=== PATIENT | female | born 1935 | race Caucasian/White ===

== ENCOUNTER 2020-05-04 09:36 | Inpatient (IN) | payer MEDICARE, MEDICAID, SELFPAY ==
[2020-05-04] VITALS (13 sets, daily range): BP systolic 106–179; BP diastolic 45–108; PULSE 87–141; RESP 1–22; TEMP 35.8–36.6; O2SAT 94–100; BMI 23.9
--- NOTE | ~2020-05-04 | MR_ITS ---
EXAMINATION: MR brain/brain stem wo/w con DATE: 05/06/2020 12:47 INDICATION: Right hemiparesis. TECHNIQUE: Magnetic resonance imaging (MRI) of the brain and brainstem was performed without and with 12 mL MultiHance intravenous contrast. Sequences included sagittal and axial T1-weighted FSE, axial diffusion-weighted FS EPI, axial T2*-weighted GRE, axial T2-weighted FLAIR Propeller, and axial T2-we ighted Propeller. Postcontrast sequences included axial and coronal T1-weighted FSE. Apparent diffusi on coefficient (ADC) maps were created. COMPARISON: Head CT 05/04/2020 FINDINGS: There is an acute infarct involving the left basal ganglia and left internal capsule. There is no intracranial hemorrhage or abnormal mass lesion. There are scattered areas of nonspecific incr eased T2-weighted signal intensity in the cerebral white matter, which is within normal limits for th e patient's age. The ventricles are normal in size. There is an old blowout fracture of floor of left orbit. The mastoid air cells are normal. IMPRESSION: 1. Acute infarct involving the left basal ganglia and left internal capsule. Reviewed, dictated and finalized at location A.
--- NOTE | ~2020-05-04 | XR_ITS ---
EXAMINATION: XR chest 1V portable DATE: 05/06/2020 09:30 INDICATION: Shortness of breath. TECHNIQUE: A single frontal view of the chest was obtained. COMPARISON: Chest single view 05/04/2020 FINDINGS: Calcified right lung nodules are consistent with old granulomatous disease. There is a smal l left pleural effusion. There are airspace opacities in the lower lung zones. No pneumothorax. Cardi omegaly is noted. IMPRESSION: 1. Airspace opacities in the lower lung zones with improvement on the right, consistent with atelecta sis versus pneumonia. 2. Stable small left pleural effusion. 3. Cardiomegaly. Reviewed, dictated and finalized at location A. IMPRESSION: 1. Airspace opacities in the lower lung zones with improvement on the right, co nsistent with atelectasis versus pneumonia. 2. Stable small left pleural effusion. 3. Cardiomegaly.
--- NOTE | ~2020-05-04 | XR_ITS ---
EXAMINATION: XR chest 1V portable INDICATION: Weakness, new infection TECHNIQUE: Portable AP chest at 1020 hours COMPARISON: None available FINDINGS: There are airspace opacities of the lung bases. Some of the right basilar airspace opacitie s have a more nodular appearance. Small pleural effusions are suggested. There is no pneumothorax. Th e cardiomediastinal silhouette is normal for technique. IMPRESSION: 1. Bibasilar airspace opacities which could be infectious or inflammatory. Recommend followup radiogr aphs in 10-14 days after appropriate therapy to evaluate for improvement/resolution. 2. Possible small pleural effusions. Reviewed, dictated and finalized at location A. IMPRESSION: 1. Bibasilar airspace opacities which could be infectious or inflammatory. Aniceto mmend followup radiographs in 10-14 days after appropriate therapy to evaluate for improvement/resolution. 2. Possible small pleural effusions.
--- NOTE | ~2020-05-04 | CT_ITS ---
EXAMINATION: CT brain wo con DATE: 05/04/2020 12:46 INDICATION: Mental status changes. Increasing weakness and right-sided facial droop. TECHNIQUE: Computed tomography (CT) of the head was performed without intravenous contrast. Sagittal and coronal reconstructions were performed. The mA was adjusted according to patient size. Iterative reconstruction technique was employed. The dose-length product was 605.33 mGy-cm. COMPARISON: None FINDINGS: No acute intracranial hemorrhage, acute infarction or abnormal extra axial fluid collection. Small ol d lacunar infarct the head of the right caudate nucleus. There is mild scattered white matter hypoatt enuation consistent with chronic small vessel ischemic disease. Symmetric prominence of the sulci and subarachnoid spaces overlying the convexities consistent with mild to moderate age-appropriate diffu se cerebral volume loss. Ventricles are normal and symmetric. No mass/mass effect. 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 Paranasal sinuses are otherwise unremarkable. The orbits and mastoid air c ells are normal. IMPRESSION: 1. No acute intracranial process. 2. Small old lacunar infarct at the head of the right caudate nucleus. 3. Age-related changes including mild to moderate diffuse volume loss and mild scattered white matter hypoattenuation consistent with chronic small vessel ischemic disease. Reviewed, dictated and finalized at location B. IMPRESSION: 1. No acute intracranial process. 2. Small old lacunar infarct at the head of the right caudate nucleus. 3. Age-related changes including mild to moderate diffuse volume loss and mild scattered white matter hypoattenuation consistent with chronic small vessel isc hemic disease.
--- NOTE | ~2020-05-04 | XR_ITS ---
EXAMINATION: XR barium swallow modified DATE: 05/05/2020 13:27 INDICATION: Dysphagia, Parkinson's TECHNIQUE: Modified barium esophagram was performed by myself to administered fluoroscopy, in conjun ction with speech pathologist who administered barium in varying consistencies as per speech patholog ist documentation. This was recorded on tape. A single fluoroscopic spot image was recorded. The DAP for this procedure was 2.54 Gycm2. Fluoroscopy exposure time was 3.3 minutes. FINDINGS: There is severe cervical spondylosis with a large anterior osteophyte noted at C4-5. Oral stage: Adequate function. Pharyngeal phase: Adequate function. Laryngeal penetration: Present. Aspiration: None. Laryngeal sensitivity: Absent. IMPRESSION: Laryngeal penetration. Please refer to speech pathologist findings and specific feeding r ecommendations. Reviewed, dictated and finalized at location A. IMPRESSION: Laryngeal penetration. Please refer to speech pathologist findings and specific feeding recommendations.
--- NOTE | 2020-05-04 10:04 | ECG_ITS ---
Measurements Intervals [place] Rate: 138 P: AL: 0 QRS: -11 QRSD: 72 T: 87 QT: 327 QTc: 496 Interpretive Statements ATRIAL FIBRILLATION WITH RAPID VENTRICULAR RESPONSE DELAYED PRECORDIAL R/S TRANSITION BORDERLINE ST-T WAVE ABNORMALITY- INF/LAT LEADS BASELINE ARTIFACT- I, II, III, AVR, AVL, AVF, V4-V5 ABNORMAL ECG Electronically Signed On 05-04-2020 11:44:04 CDT by Geovanni Griffin D.O.
[2020-05-04 10:42] LABS: Basophils Percent Auto 0.3 % (0.2-1.2); Hematocrit 46.5 % (37.0-47.0); Hemoglobin 14.9 g/dL (12.0-15.0); Immature Granulocyte Absolute 0.05 K/mm3 (0.00-0.031); Immature Granulocyte Percent A 0.3 % (0-0.5); Lymphocytes Absolute Auto 1.28 K/mm3 (0.9-3.2); Lymphocytes Percent Auto 8.4 % (18.3-44.2); Mean Corpuscular Hemoglobin 29.4 pg (26-34); Mean Corpuscular Volume 91.7 fl (80-100); Mean Platelet Volume 10.7 fl (7.4-10.4); Monocytes Percent Auto 6.8 % (2.6-8.5); Neutrophils Absolute Auto 12.8 K/mm3 (1.3-6.7); Neutrophils Percent Auto 84.2 % (45.5-73.1); Platelet Count Result 196 k/mm3 (150-375); Red Blood Count 5.07 M/mm3 (4.2-5.4); Red Cell Distribution Width 13.2 % (11.5-14.5); White Blood Count 15.2 K/mm3 (4.5-10.0)
[2020-05-04 10:50] LABS: Add Urine Microscopic? YES; Appearance Urine Clear (Clear); Bilirubin Urine Negative (Negative); Blood Urine 2+ (Negative); Color Urine Straw (Yellow); Glucose Urine UA Negative (Negative); Ketones Urine Negative (Negative); Leukocyte Esterase Ur 3+ LEU/UL (Negative); Nitrate Urine Negative (Negative); Protein Urine Negative (Negative); Urobilinogen Urine Negative mg/dL (<2.0); WBC Urine 21-30 /hpf
[2020-05-04 10:52] LABS: Specific Grav Ur 1.004 (1.001-1.035)
[2020-05-04 10:54] LABS: Alanine Aminotransferase 13 U/L (4-35); Albumin Level 3.7 g/dL (3.5-5.1); Alkaline Phosphatase 104 U/L (38-126); Anion Gap 8 mmol/L (8-16); Aspartate Amino Transferase 31 U/L (14-36); Bilirubin,Total 0.9 mg/dL (0.2-1.3); Blood Urea Nitrogen 17 mg/dL (7-17); Calcium 9.4 mg/dL (8.4-10.2); Carbon Dioxide 28 mmol/L (22-30); Chloride 105 mmol/L (98-107); Estimated CRCL calculation 35 ml/min; Estimated Glomerular Filt Rate 60; Glucose 141 mg/dL (65-105); Potassium 3.7 mmol/L (3.4-5.0); Sodium 141 mmol/L (137-145)
--- NOTE | 2020-05-04 11:08 | ED.GENADULT ---
HPI - General Adult General Chief complaint: Neuro Symptoms/Deficit Stated complaint: ?CVA Time Seen by Provider: 05/04/20 10:29 Source: EMS History of Present Illness HPI narrative: Patient is 84 years old white female brought to the emergency room by ambulance from a correction because of increased weakness, right-sided facial drooping, right-sided weakness, altered mental status. Patient was evaluated at [facility] last night for same symptoms and diagnosed with urinary tract infection and sent back to the correction with the same symptoms. retirement called EMS today for further evaluation. Per correction, patient is normally awake and oriented x1 or 2 and able to feed herself soft mechanical diet. Today patient is awake and alert x0. And was unable to feed herself or sit up in a chair. On arrival patient was incontinence of urine and stool. Awake but disoriented x4. Patient unable to follow commands. clinical academic allergist showing atrial fibrillation with RVR. Patient is DNR. Patient was COVID -2 days ago Related Data Home Medications Medication Instructions Recorded Confirmed carbidopa-levodopa tablet PO 05/04/20 lisinopril 05/04/20 omeprazole 05/04/20 rivaroxaban [Xarelto] mg 05/04/20 simvastatin mg 05/04/20 trazodone 05/04/20 Allergies Allergy/AdvReac Type Severity Reaction Status Date / Time aspirin Allergy Unknown Unknown Verified 05/04/20 11:31 caffeine Allergy Unknown Unknown Verified 05/04/20 11:31 codeine Allergy Unknown Unknown Verified 05/04/20 11:31 propoxyphene Allergy Unknown Unknown Verified 05/04/20 11:31 Review of Systems Review of Systems: ROS unobtainable: Yes unobtainable due to medical condition PMFSH Social History Social History Smoking status: Never smoker Alcohol intake: never Exam Narrative: Exam Narrative: General appearance: Well-developed, well-nourished, awake, not in any pain or distress Skin: Normal color Head: Normocephalic, nontraumatic Eyes: Clear conjunctiva ENT: Oropharynx normal, ears normal, nose normal Neck: Supple, nontender Chest and respiratory: Airway patent, no respiratory distress, few scattered rhonchi Heart: Tachycardia, irregular irregularity Abdomen: Soft, nontender, no organomegaly, quiet bowel sounds Vascular: Normal peripheral pulses, normal capillary refill. Musculoskeletal: Patient moving all the extremities, Neurologic: Alert and disoriented x4, possible slight weakness right upper and right lower extremity Course Course Emergency Course: Stable Consultations Consultation #1: DR FU Date: 05/04/20 Time: 13:47 Vital Signs Vital signs: Vital Signs Temperature 36.5 C 05/04/20 09:57 Pulse Rate 141 H 05/04/20 09:57 Respiratory Rate 17 05/04/20 09:57 Blood Pressure 179/94 H 05/04/20 09:57 Pulse Oximetry 97 05/04/20 09:57 Temperature 36.5 C 05/04/20 09:57 Pulse Rate 141 H 05/04/20 09:57 Respiratory Rate 17 05/04/20 09:57 Blood Pressure 179/94 H 05/04/20 09:57 Pulse Oximetry 97 05/04/20 09:57 Medical Decision Making MDM Narrative Medical decision making narrative: Patient presents with confusion. Worse than usual, other. Difficult to get history or to do physical exam, patient is awake, does not follow commands. My plan to get labs, CT head, UA, blood culture. Cardiology Work-up showed that the patient had leukocytosis, urinary tract infection. Chest x-ray showed present bilateral airspace opacification., Patient had negative COVID-19 test 2 days ago. EKG showed A. fib with RVR, Cardizem bolus and drip started, currently patient on Xarelto There is a possibility o
[2020-05-04] MEDS: SODIUM CHLORIDE 0.9% IV 1,000 ML 500 ML IV CONT (11:57)
[2020-05-04] MEDS: dilTIAZem HCl INJ 25 MG/5 ML VIAL 10 MG IV PUSH (11:58)
[2020-05-04 12:40] LABS: Lactic Acid Reflex 1.8 mmol/L (0.7-2.1)
--- NOTE | 2020-05-04 18:16 | PC.NURSE ---
This patient, Marva Otoole, was admitted to IMU Room 201-01. Patient/family oriented to hospital policies and general routines including ID bracelet, bed and alarms, visiting hours, pain management, procedures, bathroom and other care routines, personal items, smoking policy, room service/diet, and visiting hours. Information on how to activate the Rapid Response Team has been discussed. Patient/Family are encouraged to report perceived risks to care and to ask questions if they do not understand what they are told or what they should do.
--- NOTE | 2020-05-04 18:30 | PM.IMHP ---
H&P: HPI History of Present Illness Date/Time: 05/04/20 18:30 Chief complaint: Neurological symptoms. Narrative: Marva Otoole is an 84-year-old female with dementia, DVT and pulmonary embolism on long-term anticoagulation hypertension, dyslipidemia, and parkinsonism who presented to the emergency department earlier today via EMS from [facility] for evaluation of neurological symptoms. Although she is alert she is not able to provide me any history at the time my evaluation due to her altered mental status. I have been told that she is reportedly alert and oriented x1 or 2 at baseline and is able to feed herself a soft mechanical diet. According to EMS report, she has been increasingly confused over the past day and in fact was seen in the emergency department at [facility] in [place] just last evening with similar complaints. She was diagnosed with urinary tract infection and was discharged back to the alf. Today she was unable to sit up, feed herself, and was not oriented and thus she was brought in for further evaluation. EMS notes that she had mild right-sided weakness and facial droop on their arrival as well and she does have slight mouth droop at the time my evaluation as well. When I enter the room she is sitting up watching television. She is very pleasant, is alert, smiles, and nods with everything that I say to her. Of note, chest x-ray did show findings of possible pneumonia and it was related to us that the patient was negative for COVID on testing done 2 days ago. Review of Systems Review of Systems: Narrative: A review of systems is unable to be obtained due to her current mental status as detailed above. [facility] Past Medical History Medical History (Updated 05/04/20 @ 21:35 by Sejal Gallagher PA-C) Atrial fibrillation Breast cancer Chronic GERD Congestive heart failure Coronary artery disease Current use of rat exterminator anticoagulation Dementia Dyslipidemia Fracture of left hip requiring operative repair History of CVA (cerebrovascular accident) History of DVT (deep vein thrombosis) History of pulmonary embolism Hypertension Intellectual disability Major depression Parkinsonism Surgical History Surgical History (Updated 05/04/20 @ 21:33 by Sejal Gallagher PA-C) History of right mastectomy Family History Family History (Updated 05/04/20 @ 21:34 by Sejal Gallagher PA-C) Other Family history unknown Social History Social History (Updated 05/04/20 @ 21:35 by eSjal Gallagher PA-C) Social History: Surrogate decision maker: Diamond Nicole. Code status: Do not resuscitate, comfort focus treatment. Smoking status: Unknown if ever smoked Alcohol intake: unknown Substance use: unknown Additional living arrangements comments: Resident of [facility]. Spiritual care concerns: No Meds Home Medications and Allergies Home Medications Medication Instructions Recorded Confirmed Type anastrozole 1 mg PO DAILY 05/04/20 05/04/20 History carbidopa-levodopa 1 tablet PO DAILY 05/04/20 05/04/20 History carbidopa-levodopa 2 tablet PO HS 05/04/20 05/04/20 History icosapent ethyl [Vascepa] 2 g PO BID 05/04/20 05/04/20 History lisinopril 40 mg PO DAILY 05/04/20 05/04/20 History memantine-donepezil [Namzaric] 1 cap PO DAILY 05/04/20 05/04/20 History omeprazole 20 mg PO DAILY 05/04/20 05/04/20 History rivaroxaban [Xarelto] 20 mg PO HS 05/04/20 05/04/20 History simvastatin 40 mg PO HS 05/04/20 05/04/20 History sulfamethoxazole-trimethoprim 1 tablet PO BID 05/04/20 05/04/20 History [Bactrim DS] trazodone 25 mg PO HS 05/04/20 05/04/20 History Allergies Allergy/AdvReac Type Severity Reaction Status Date / Time aspirin Allergy Unknown Unknown Verified 05/04/20 11:31 caffeine Allergy Unknown Unknown Verified 05/04/20 11:31 codeine Allergy Unknown Unknown Verified 05/04/20 11:31 propoxyphene Allergy Unknown Unknown Verified 05/04/20 11:31
[2020-05-04] MEDS: RIVAROXABAN 20 MG TABLET PO (22:35)
[2020-05-04] MEDS: CARBIDOPA/LEVODOPA 25/100 MG CR TABLET 4 TABLET PO (22:36)
[2020-05-04] MEDS: MEMANTINE HCL XR 28 MG CAP PO (22:36)
[2020-05-04] MEDS: DONEPEZIL HCL 10 MG TABLET PO (22:37)
[2020-05-05] VITALS (16 sets, daily range): BP systolic 110–139; BP diastolic 57–75; PULSE 79–122; RESP 16–20; TEMP 35.8–36.9; O2SAT 95–97
--- NOTE | 2020-05-05 | ECHO_ITS ---
Patient Info Name: Marva Otoole Age: 84 years : 1935 Gender: Female Ht: 63 in Wt: 138 lbs BSA: 1.68 m2 HR: 85 bpm BP: 124 / 67 mmHg Heart Rhythm: Atrial Fibrillation Technical Quality: Good Exam Date: 05/05/2020 11:51 AM Exam Location: [facility] Patient Status: Inpatient Admit Date: 05/04/2020 Staff Ordering Physician: Anna Sung MD Compliance Representative: Jorje Castro RDCS Attending Provider: Anna Sung MD Exam Type: CA echo doppler color flow Study Info Indications I48.1 - Persistent atrial fibrillation Complete two-dimensional, color flow and Doppler transthoracic echocardiogram is performed. History/Risk Factors Afib w/ RVR; HFpEF, HTN, CAD, CVA. Summary 1. Complete two-dimensional, color flow and Doppler transthoracic echocardiogram is performed. 2. Left ventricular chamber dimension is normal. 3. Left ventricular systolic function is normal, estimated at 65-70%. 4. There is mildly increased left ventricular wall thickness. 5. Left atrial chamber dimension is severely enlarged. 6. Right atrial chamber dimension is mildly enlarged. 7. There is mild mitral valve regurgitation. 8. There is mild tricuspid valve regurgitation. 9. There is small pericardial effusion. Left Ventricle Left ventricular chamber dimension is normal. Left ventricular systolic function is normal, estimated at 65-70%. There is mildly increased left ventricular wall thickness. The left ventricular diastolic function is indeterminate. Right Ventricle Right ventricular chamber dimension is normal. Right ventricular systolic function is normal. Left Atria Left atrial chamber dimension is severely enlarged. Right Atria Right atrial chamber dimension is mildly enlarged. Atrial Septum Intact interatrial septum visualized by color flow imaging. Aortic Valve The aortic valve is trileaflet. There is mild aortic valve sclerosis. There is no aortic valve stenosis. There is trace aortic valve regurgitation. Pulmonic Valve The pulmonic valve is normal. There is no pulmonic valve stenosis. There is trace pulmonic regurgitation. Mitral Valve The mitral valve has calcified annulus. There is no mitral valve stenosis. There is mild mitral valve regurgitation. Tricuspid Valve The tricuspid valve leaflets are normal. There is no significant tricuspid valve stenosis. There is mild tricuspid valve regurgitation. No pulmonary hypertension, estimated pulmonary arterial systolic pressure is 35 mmHg. Pericardium/Pleural The pericardium appears normal. There is small pericardial effusion. Inferior Vena Cava Dilated inferior vena cava with >50% collapse upon inspiration consistent with elevated right atrial pressure, 10 mmHg. Aorta The aortic root size at the sinus of Valsalva is normal. The prox ascending aorta size is normal. Left Ventricular Outflow Tract Name Value Normal LVOT 2D LVOT Diameter 1.7 cm LVOT Doppler LVOT Peak Gradient 5 mmHg LVOT Mean Gradient 3 mmHg LVOT VTI
[2020-05-05 05:10] LABS: Basophils Percent Auto 0.2 % (0.2-1.2); Eosinophils Percent Auto 0.2 % (0-4.4); Hematocrit 39.3 % (37.0-47.0); Hemoglobin 12.8 g/dL (12.0-15.0); Immature Granulocyte Absolute 0.03 K/mm3 (0.00-0.031); Immature Granulocyte Percent A 0.3 % (0-0.5); Lymphocytes Percent Auto 16.9 % (18.3-44.2); Mean Corpuscular HGB Conc 32.6 g/dl (32-36); Mean Corpuscular Hemoglobin 28.8 pg (26-34); Mean Corpuscular Volume 88.3 fl (80-100); Mean Platelet Volume 10.6 fl (7.4-10.4); Monocytes Absolute Auto 0.6 K/mm3 (0.1-0.6); Monocytes Percent Auto 6.8 % (2.6-8.5); Neutrophils Absolute Auto 7.2 K/mm3 (1.3-6.7); Neutrophils Percent Auto 75.6 % (45.5-73.1); Platelet Count Result 199 k/mm3 (150-375); Red Blood Count 4.45 M/mm3 (4.2-5.4); Red Cell Distribution Width 13.1 % (11.5-14.5); White Blood Count 9.5 K/mm3 (4.5-10.0)
[2020-05-05 05:35] LABS: Albumin Level 3.3 g/dL (3.5-5.1); Alkaline Phosphatase 91 U/L (38-126); Anion Gap 6 mmol/L (8-16); Aspartate Amino Transferase 28 U/L (14-36); Bilirubin,Total 0.8 mg/dL (0.2-1.3); Blood Urea Nitrogen 14 mg/dL (7-17); Carbon Dioxide 28 mmol/L (22-30); Chloride 107 mmol/L (98-107); Estimated CRCL calculation 46 ml/min; Estimated Glomerular Filt Rate > 60; Glucose 104 mg/dL (65-105); Magnesium 1.8 mg/dL (1.6-2.3); Potassium 3.7 mmol/L (3.4-5.0); Sodium 141 mmol/L (137-145)
[2020-05-05 05:48] LABS: Alanine Aminotransferase < 4 U/L (4-35)
[2020-05-05 06:18] LABS: Thyroid Stimulating Hormone Reflex 0.291 uIU/mL (0.465-4.68)
[2020-05-05 06:45] LABS: Free T4 Free Thyroxine Reflex 0.94 ng/dL (0.78-2.19)
[2020-05-05 07:48] LABS: Total Triiodothyronine (T3) 0.85 NG/ML (0.97-1.69)
[2020-05-05] MEDS: lisinopriL 20 MG TABLET 40 MG PO (08:52)
[2020-05-05] MEDS: CARBIDOPA/LEVODOPA 25/100 MG CR TABLET 2 TABLET PO (08:52)
[2020-05-05] MEDS: PANTOPRAZOLE 40 MG TABLET PO (08:52)
[2020-05-05] MEDS: ANASTROZOLE (*CHEMO) 1 MG TABLET PO (08:52)
[2020-05-05] MEDS: POTASSIUM CHLORIDE 20 MEQ TABLET 40 MEQ PO (12:26)
[2020-05-05] MEDS: MAGNESIUM OXIDE 400 MG TABLET PO (12:26)
--- NOTE | 2020-05-05 12:51 | PM.IMPN ---
Progress Note: A&P Assessment and Plan (1) Neurological symptoms: Code(s): R29.90 - Unspecified symptoms and signs involving the nervous system Status: Acute Assessment and Plan: 05/05/20 12:51 patient is 84-year-old female a resident of [facility] with history of dementia, hypertension, hyperlipidmia, DVT pulmonary emboli on anticoagulation, normally patient is oriented X1 to herself, and had been able to feed herself and minimal interaction however her symptoms were getting more worsen and confused and initially patient was seen to emergency department at [facility] and was found to have a UTI and started on oral antibiotic and discharge back to the nursing however her symptoms were getting more worse and patient was sent to the hospital ER, patient is found to have atrial fibrillation with RVR initially patient was given IV diltiazem, patient heart rate trended down then again went back into AFib RVR patient was started on diltiazem drip and continued her Xarelto for anticoagulation, today patient still quite confused unable to provide any history review of systems, patient's rate is trending down will consult clinical laboratory scientist further recommendation, will do cardiac echo to further evaluate, patient UA is positive for leuko Estrace and white count patient was started on Rocephin, will follow-up on urine and blood culture further recommendation to follow, will have a PT OT evaluate the patient. (2) Atrial fibrillation with rapid ventricular response: Code(s): I48.91 - Unspecified atrial fibrillation Status: Acute Assessment and Plan: patient on diltiazem drip rate is trending down anticoagulated with Xarelto (3) Urinary tract infection: Qualifiers: Hematuria presence: with hematuria Urinary tract infection type: site unspecified Qualified Code(s): N39.0 - Urinary tract infection, site not specified; R31.9 - Hematuria, unspecified Code(s): N39.0 - Urinary tract infection, site not specified Status: Acute Assessment and Plan: patient started on Rocephin will follow-up on urine culture and sensitivity (4) Abnormal chest x-ray: Code(s): R93.89 - Abnormal findings on diagnostic imaging of other specified body structures Status: Acute Assessment and Plan: chest x-ray concerning for pneumonia patient started on azithromycin and Rocephin will continue to monitor repeat chest x-ray (5) Dementia: Code(s): F03.90 - Unspecified dementia without behavioral disturbance Status: Acute Assessment and Plan: clinically stable (6) Hypertension: Code(s): I10 - Essential (primary) hypertension Status: Acute Assessment and Plan: will continue home regimen and monitor (7) Dyslipidemia: Code(s): E78.5 - Hyperlipidemia, unspecified Status: Acute Assessment and Plan: continue home regimen and monitor (8) Parkinsonism: Code(s): G20 - Parkinson's disease Status: Acute Assessment and Plan: will continue home regimen and monitor Subjective Date/time seen: 05/05/20 12:51 patient is 84-year-old female a resident of [facility] with history of dementia, hypertension, hyperlipidmia, DVT pulmonary emboli on anticoagulation, normally patient is oriented X1 to herself, and had been able to feed herself and minimal interaction however her symptoms were getting more worsen and confused and initially patient was seen to emergency department at [facility] and was found to have a UTI and started on oral antibiotic and discharge back to the nursing however her symptoms were getting more worse and patient was sent to the hospital ER, patient is found to have atrial fibrillation with RVR initially patient was given IV diltiazem, patient heart rate trended down then again went back into AFib RVR patient was started on diltiazem drip and continued her Xarelto for anticoagulation, today patient still quite confused
--- NOTE | 2020-05-05 14:13 | PM.CNCAR ---
Assessment and Plan Assessment and plan (1) Atrial fibrillation with rapid ventricular response: Code(s): I48.91 - Unspecified atrial fibrillation Status: Acute Assessment and Plan: EKG personally reviewed from 05/04/2020 at 10:30 a.m. reveals atrial fibrillation with rapid ventricular response at a rate of 138 beats per minute. There is delayed precordial transition. Borderline ST -T wave abnormality inferior lateral leads. Echocardiogram 05/05/2020:Left ventricular chamber dimension is normal. Left ventricular systolic function is normal, estimated at 65-70%. There is mildly increased left ventricular wall thickness. Left atrial chamber dimension is severely enlarged. Right atrial chamber dimension is mildly enlarged. There is mild mitral valve regurgitation. There is mild tricuspid valve regurgitation. There is small pericardial effusion. She was placed on a Cardizem drip last evening at 5 mg per hour which nicely controlled her rate. We will transition her to 30 mg q.6 hours. Recommend staying in IMU overnight to monitor heart rate and blood pressure response. She does reside in a senior living and would be able to continue the short-acting formulation. She did pass her swallow test and is able to take her medications without difficulty so could consider changing her to a long-acting formulation as long as she does not need her medications crushed and is able to swallow the capsule. There is a drug interaction with simvastatin. Will change her to atorvastatin at 10 mg daily. Continue anticoagulation with Xarelto at 20 mg daily. (2) Current use of residential anticoagulation: Code(s): Z79.01 - long-term (current) use of anticoagulants Status: Inactive Assessment and Plan: Xarelto as above Additional Plan Plan discussed with Dr. Fish [id number] 05/05/2020 History of Present Illness History of Present Illness Consult date/time: 05/05/20 14:13 Requesting physician: Anna Sung MD Consult reason: atrial fibrillation Reason For Visit: Afib w/ RVR, UTI, Pneumonia, Inrease confusion Narrative: 84-year-old female with dementia, history of DVT and pulmonary embolus on long-term anticoagulation with Xarelto, hypertension, dyslipidemia and Parkinson's that was brought to the emergency room from [facility] for evaluation of neurological symptoms. She smiles and nods her head yes to every question. Information gathered from the chart. We are asked to see her for atrial fibrillation with rapid ventricular response. According to the chart she does have a history of atrial fibrillation. Her home medication list do not list any rate controlling medications. Review of Systems Review of Systems: ROS unobtainable: Yes unobtainable due to medical condition and unobtainable due to mental status [facility] Past Medical History Medical History (Updated 05/05/20 @ 14:27 by Maddi Clarke APRN) Atrial fibrillation Breast cancer Chronic GERD Congestive heart failure Coronary artery disease Current use of termite control technician anticoagulation Dementia Dyslipidemia Fracture of left hip requiring operative repair History of CVA (cerebrovascular accident) History of DVT (deep vein thrombosis) History of pulmonary embolism Hypertension Intellectual disability Major depression Parkinsonism Surgical History Surgical History History of right mastectomy Family History Family History Other Family history unknown Social History Social History Social History: Surrogate decision maker: Diamond Rivera. Code status: Do not resuscitate, comfort focus treatment. Smoking status: Unknown if ever smoked Alcohol intake: unknown Substance use: unknown Additional livin
[2020-05-05] MEDS: dilTIAZem HCL 30 MG TABLET PO ×2 (14:34→19:04)
[2020-05-05] MEDS: CARBIDOPA/LEVODOPA 25/100 MG CR TABLET 4 TABLET PO (20:49)
[2020-05-05] MEDS: DONEPEZIL HCL 10 MG TABLET PO (20:50)
[2020-05-05] MEDS: MEMANTINE HCL XR 28 MG CAP PO (20:50)
[2020-05-05] MEDS: RIVAROXABAN 20 MG TABLET PO (20:50)
[2020-05-06] VITALS (16 sets, daily range): BP systolic 123–158; BP diastolic 40–83; PULSE 72–126; RESP 16–20; TEMP 36–36.8; O2SAT 94–99
[2020-05-06] MEDS: dilTIAZem HCL 30 MG TABLET PO ×2 (00:20→05:53)
[2020-05-06 05:18] LABS: Hematocrit 47.7 % (37.0-47.0); Hemoglobin 15.1 g/dL (12.0-15.0); Mean Corpuscular HGB Conc 31.7 g/dl (32-36); Mean Corpuscular Hemoglobin 28.9 pg (26-34); Mean Corpuscular Volume 91.2 fl (80-100); Mean Platelet Volume 10.5 fl (7.4-10.4); Platelet Count Result 200 k/mm3 (150-375); Red Blood Count 5.23 M/mm3 (4.2-5.4); Red Cell Distribution Width 13.3 % (11.5-14.5); White Blood Count 8.3 K/mm3 (4.5-10.0)
[2020-05-06 05:36] LABS: Anion Gap 6 mmol/L (8-16); Blood Urea Nitrogen 17 mg/dL (7-17); Calcium 9.7 mg/dL (8.4-10.2); Carbon Dioxide 31 mmol/L (22-30); Chloride 104 mmol/L (98-107); Estimated CRCL calculation 38 ml/min; Estimated Glomerular Filt Rate > 60; Glucose 108 mg/dL (65-105); Potassium 3.9 mmol/L (3.4-5.0); Sodium 141 mmol/L (137-145)
--- NOTE | 2020-05-06 08:02 | PM.IMPN ---
Progress Note: A&P Assessment and Plan (1) Acute respiratory distress: Code(s): R06.03 - Acute respiratory distress Status: Acute Assessment and Plan: Patient had an episodes of respiratory difficulty possibly from aspiration. Stat cXR and ABG ordered. Make NPO for now. Will change abx to Zosyn since original CXR concerning for PNA and thus more likely aspiration. Follow up on results. Currently stable and will wean o2 as tolerated. CXR showing airspace opacities in the lower lung zones with improvement on the right, consistent with atelectasis versus pneumonia. ABG 7.44/41/127 on 5L. Wean O2 as toelrated. n repeat exam, she is resting comfortable. Called by RN and now patietn back to room air. MRI does show acute CVA to explain the new neurologic changes. Discussed with family by phone. Orlin resume diet and add aspiration precautions, out of bed, etc. She just had MBS yestreday that was okay. (2) Neurological symptoms: Code(s): R29.90 - Unspecified symptoms and signs involving the nervous system Status: Acute Assessment and Plan: Altered mental status possibly related to PNA and/or UTI. CT brain showing old CVA. She may have had a new CVA which could explain these changes. Follow clinically. She is on Xarelto for stroke prophylaxis. (3) Atrial fibrillation with rapid ventricular response: Code(s): I48.91 - Unspecified atrial fibrillation Status: Acute Assessment and Plan: Tele reviewed. HR better controlled. Patient was on diltiazem drip but transitioned to oral now. Continue anticoagulation with Xarelto (4) Urinary tract infection: Qualifiers: Hematuria presence: with hematuria Urinary tract infection type: site unspecified Qualified Code(s): N39.0 - Urinary tract infection, site not specified; R31.9 - Hematuria, unspecified Code(s): N39.0 - Urinary tract infection, site not specified Status: Acute Assessment and Plan: UA noted. UCx growing GNB 50-100K. Awaiting sensitivities. Continue abx (5) Abnormal chest x-ray: Code(s): R93.89 - Abnormal findings on diagnostic imaging of other specified body structures Status: Acute Assessment and Plan: Chest x-ray on admission showed bibasilar airspace opacities probably PNA. She has been started on Rocephin and azithromycin. Concern for aspiration. As above. (6) Dementia: Code(s): F03.90 - Unspecified dementia without behavioral disturbance Status: Acute Assessment and Plan: Alert and pleasant. CT brain showing small old lacunar infarct at the head of the right caudate nucleus. Continue Namenda and Aricept. (7) Hypertension: Code(s): I10 - Essential (primary) hypertension Status: Acute Assessment and Plan: Patient's blood pressure was reviewed on 05/06 Blood pressure well controlled. Will continue current medications. (8) Dyslipidemia: Code(s): E78.5 - Hyperlipidemia, unspecified Status: Acute Assessment and Plan: LFTs okay. simvastatin currently on hold due to the Diltiazem. Will change to Lipitor. (9) Parkinsonism: Code(s): G20 - Parkinson's disease Status: Acute Assessment and Plan: Stable. Continue Sinement (10) DVT prophylaxis: Code(s): Z29.9 - Encounter for prophylactic measures, unspecified Status: Acute Assessment and Plan: Xarelto Subjective Date/time seen: 05/06/20 08:02 Interval history: Date of service 05/06 84yo female with dementia here for altered mental status. Caled to the room this morning for hypoxia. Patietn with gurgling respirations and found to be 77% on room air. She was suctioned and placed on supplemental O2. She has improved. She did receive pills with nectar thickened liquid earlier. She had a MBS yesterday showing she could have a soft, level 6 with nectar thick liquid
[2020-05-06 08:08] LABS: Alveolar/Arterial O2 Gradient 110.9 mmHg; Base Excess ABG 2.7 mEq/l (+/-2.0); Fractional Inspired Oxygen 40 %; HCO3 ABG 27.1 mEq/l (22.0-26.0); Oxygen Content ABG 20.7 %vol (16.0-22.0); Oxygen Saturation ABG 98.6 % (95.0-100.0); Oxyhemoglobin 97.2 % THb (90.0-100.0); PCO2 ABG 40.7 mmHg (35.0-45.0); PO2 ABG 127.5 mmHg (80.0-100.0); PO2 FiO2 Ratio Arterial Blood 3.19 %; pH ABG 7.441 (7.350-7.450)
[2020-05-06 08:09] LABS: Device NASAL CANNULA; Modified Allen's Test Pass; Site Drawn RIGHT RADIAL
--- NOTE | 2020-05-06 09:09 | PM.PNCARD ---
Progress Note: A&P Additional Plan 84-year-old lady presented with mental status changes she presumably has chronic atrial fibrillation. Heart rate was rapid upon presentation but she was not really hemodynamically compromised from what I can see. I am going to transition her to long-acting diltiazem for ease of management both in the hospital and when she returns to her skilled care facility. Systemic anticoagulation is already in place with Xarelto. Alfonso Fish MD [facility] Subjective Date/time seen: Date of service: 05/06/20 09:09 Interval history: Follow-up visit in this elderly 84-year-old woman with atrial fibrillation. Consulted to attempt to provide heart rate control. She has responded nicely to diltiazem which she is currently getting q.6 hours. Patient is comfortable seated in bed in is responsive but is incoherent and response to every question asked with okay . Exam Const: General: comfortable and no acute distress HENMT: Mouth: Yes dry mucous membranes Eyes: Sclera: sclerae normal Pupils: Equal, round and reactive pupils present Neck: Neck: supple and no JVD Resp: Other: Scattered expiratory rhonchi are not Cardio: Rhythm: abnormal rhythm irregularly irregular GI: GI Palp: Yes Soft to palpation Auscultation: normal bowel sounds Skin: General skin exam: normal color Neuro: Cognition (Neuro): abnormal cognition Objective Data Vital Signs Vital Signs: Vital Signs - 24 hr 05/05/20 10:00 05/05/20 12:00 05/05/20 13:26 Temperature 35.8 C L Pulse Rate 83 83 84 Respiratory Rate 16 Blood Pressure 124/73 Pulse Oximetry 95 05/05/20 14:00 05/05/20 14:36 05/05/20 16:00 Temperature 36.3 C L Pulse Rate 99 83 90 Respiratory Rate 16 Blood Pressure 119/61 Pulse Oximetry 96 05/05/20 18:00 05/05/20 19:30 05/05/20 20:00 Temperature 36.9 C Pulse Rate 111 H 109 H 122 H Respiratory Rate 20 Blood Pressure 139/75 Pulse Oximetry 97 05/05/20 22:00 05/06/20 00:00 05/06/20 02:00 Temperature 36.1 C L Pulse Rate 91 93 81 Respiratory Rate 20 Blood Pressure 145/63 H Pulse Oximetry 95 05/06/20 04:00 05/06/20 05:59 05/06/20 07:59 Temperature 36.8 C 36.6 C Pulse Rate 72 101 H 102 H Respiratory Rate 20 16 Blood Pressure 138/74 158/83 H Pulse Oximetry 98 99 Intake/Output Intake/Output: Intake & Output 05/03/20 05/04/20 05/05/20 05/06/20 23:59 23:59 23:59 23:59 Intake Total 1810 846.3 100 Output Total 850 1250 300 Balance 960 -403.7 -200 Meds/Results Medications: Active Medications Generic Name Dose Route Start Last Admin Trade Name Freq PRN Reason Stop Dose Admin Anastrozole 1 mg 05/05/20 09:00 05/05/20 08:52 Anastrozole (*Chemo) 1 Mg Tablet PO 06/04/20 09:01 1 mg DAILY MILANA Administration Atorvastatin Calcium 20 mg 05/06/20 09:00 Atorvastatin 20 Mg Tablet PO DAILY MILANA Carbidopa/Levodopa 4 tablet 05/04/20 21:20 05/05/20 20:49 Carbidopa/Levodopa 25/100 Mg Cr Tablet PO 4 tablet HS MILANA Administration Carbidopa/Levodopa 2 tablet 05/05/20 09:00 05/05/20 08:52 Carbidopa/Levodopa 25/100 Mg Cr Tablet PO 2 tablet DAILY MILANA Administration Diltiazem HCl 180 mg 05/06/20 09:10 Diltiazem Hcl Cd 180 Mg Cap.Er.24h PO QAM MILANA Donepezil HCl 10 mg 05/04/20 21:10 05/05/20 20:50 Donepezil Hcl 10 Mg Tablet PO 10 mg HS MILANA Administration Piperacillin Sod/Tazobactam Sod 2.25 gm in 50 mls @ 100 mls/hr 05/06/20 12:00 Zosyn 2.25 Gm/D5w 50 Ml IVPB Q6HR MILANA Lisinopril 40 mg 05/05/20 09:00 05/05/20 08:52 Lisinopril 20 Mg Tablet PO 40 mg DAILY MILANA Administration Magnesium Oxide 400 mg 05/05/20 09:00 05/05/20 12:26 Magnesium Oxide 400 Mg Tablet PO 400 mg QAM MILANA Administration Memantine 28 mg 05/04/20 21:10 05/05/20 20:50 Memantine Hcl Xr 28 Mg Cap PO 28 mg HS MILANA Administration Pantoprazole Sodium 40 mg 05/05/20 09:00 05/05/20 08:52 Pa
[2020-05-06 13:17] LABS: SARS-CoV-2 RNA PCR Negative
[2020-05-06] MEDS: CARBIDOPA/LEVODOPA 25/100 MG CR TABLET 2 TABLET PO (13:45)
[2020-05-06] MEDS: lisinopriL 20 MG TABLET 40 MG PO (13:45)
[2020-05-06] MEDS: ATORVASTATIN 20 MG TABLET PO (13:46)
[2020-05-06] MEDS: ANASTROZOLE (*CHEMO) 1 MG TABLET PO (13:48)
[2020-05-06] MEDS: PANTOPRAZOLE 40 MG TABLET PO (13:49)
[2020-05-06] MEDS: MAGNESIUM OXIDE 400 MG TABLET PO (13:49)
[2020-05-06] MEDS: dilTIAZem HCL CD 180 MG CAP.ER.24H PO (13:50)
[2020-05-06] MEDS: DONEPEZIL HCL 10 MG TABLET PO (20:56)
[2020-05-06] MEDS: RIVAROXABAN 20 MG TABLET PO (20:56)
[2020-05-06] MEDS: CARBIDOPA/LEVODOPA 25/100 MG CR TABLET 4 TABLET PO (20:56)
[2020-05-06] MEDS: MEMANTINE HCL XR 28 MG CAP PO (20:56)
[2020-05-07] VITALS (15 sets, daily range): BP systolic 107–135; BP diastolic 56–74; PULSE 68–95; RESP 16–20; TEMP 35.9–36.2; O2SAT 93–96
[2020-05-07 05:34] LABS: Hematocrit 42.4 % (37.0-47.0); Hemoglobin 13.8 g/dL (12.0-15.0); Mean Corpuscular HGB Conc 32.5 g/dl (32-36); Mean Corpuscular Hemoglobin 29.6 pg (26-34); Mean Corpuscular Volume 90.8 fl (80-100); Mean Platelet Volume 10.6 fl (7.4-10.4); Platelet Count Result 206 k/mm3 (150-375); Red Blood Count 4.67 M/mm3 (4.2-5.4); Red Cell Distribution Width 13.2 % (11.5-14.5); White Blood Count 8.1 K/mm3 (4.5-10.0)
[2020-05-07 05:46] LABS: Anion Gap 9 mmol/L (8-16); Blood Urea Nitrogen 18 mg/dL (7-17); Calcium 9.2 mg/dL (8.4-10.2); Carbon Dioxide 28 mmol/L (22-30); Chloride 105 mmol/L (98-107); Estimated CRCL calculation 38 ml/min; Estimated Glomerular Filt Rate > 60; Glucose 96 mg/dL (65-105); Potassium 3.6 mmol/L (3.4-5.0); Sodium 142 mmol/L (137-145)
--- NOTE | 2020-05-07 10:00 | PM.PNCARD ---
Progress Note: A&P Additional Plan 84-year-old lady with chronic atrial fibrillation heart rate is well controlled with diltiazem. No cardiac recommendations to make today. Will continue to follow with you while she is in the hospital Alfonso Fish MD [facility] Subjective Date/time seen: Date of service: 05/07/20 10:00 Interval history: Follow-up visit in this elderly 84-year-old woman with atrial fibrillation. Consulted to assist with rate control. Patient is now receiving long-acting diltiazem heart rate is well controlled. No cardiovascular symptoms. Patient continues to be comfortable but once again answers all questions with Okay . Exam Narrative: Exam Narrative: Elderly female sleeping in bed. Arouses easily. Smiles and nods yes to every question. Const: General: comfortable and no acute distress Nutritional Appearance: average body habitus Orientation/consciousness: patient oriented x3 Limitations: altered mental status HENMT: Head: normal to inspection, normocephalic and atraumatic Ears: hearing grossly normal bilaterally General nose exam: Normal nares present and no epistaxis Face and sinus: normal facial exam Mouth: Yes moist mucous membranes and Yes dry mucous membranes Teeth and gingiva: other ( Multiple missing teeth) Eyes: General: appearance normal, both eyes and all related structures Sclera: sclerae normal Pupils: Equal, round and reactive pupils present Neck: Neck: supple and no JVD Thyroid: thyroid normal Carotids: no bruits Resp: Effort & Inspection: normal respiratory effort Auscultation: clear to auscultation bilaterally Other: Scattered expiratory rhonchi are not Cardio: Jugular venous distension: no JVD Rate: regular rate Rhythm: abnormal rhythm irregularly irregular Bruits: no abdominal aortic bruits, no carotid bruits and no femoral bruits Peripheral pulses: radial pulses present bilateral 2+, posterior tibial pulses present bilateral diminished and dorsalis pedis present bilateral diminished GI: Auscultation: normal bowel sounds Urinary Catheter: Urinary Catheter: patent and draining and urine clear Skin: General skin exam: normal color and no rashes or lesions noted Neuro: General: patient oriented x3 Cranial nerves: Yes Equal, round and reactive pupils present Cognition (Neuro): abnormal cognition Extrem: General: no clubbing, cyanosis or edema Psych: Other: unable to assess Objective Data Vital Signs Vital Signs: Vital Signs - 24 hr 05/06/20 12:00 05/06/20 14:00 05/06/20 15:48 Temperature 36.0 C L 36.0 C L Pulse Rate 112 H 106 H 84 Respiratory Rate 20 16 Blood Pressure 136/54 L 123/76 Pulse Oximetry 98 96 05/06/20 16:00 05/06/20 18:00 05/06/20 19:43 Temperature 36.1 C L Pulse Rate 92 91 84 Respiratory Rate 16 Blood Pressure 128/40 L Pulse Oximetry 94 05/06/20 20:00 05/06/20 22:00 05/07/20 00:00 Temperature 36.1 C L Pulse Rate 81 93 78 Respiratory Rate 16 Blood Pressure 130/64 Pulse Oximetry 93 05/07/20 01:52 05/07/20 04:00 05/07/20 06:00 Temperature 36.0 C L Pulse Rate 74 68 78 Respiratory Rate 16 Blood Pressure 125/74 Pulse Oximetry 96 05/07/20 07:38 Temperature 36.2 C L Pulse Rate 84 Respiratory Rate 16 Blood Pressure 120/70 Pulse Oximetry 93 Intake/Output Intake/Output: Intake & Output 05/04/20 05/05/20 05/06/20 05/07/20 23:59 23:59 23:59 23:59 Intake Total 1810 846.3 320 800 Output Total 850 1250 1100 400 Balance 960 -403.7 -780 400 Meds/Results Medications: Active Medications Generic Name Dose Route Start Last Admin Trade Name Kumar PRN Reason Stop Dose Admin Anastrozole 1 mg 05/05/20 09:00 05/06/20 13:48 Anastrozole (*Chemo) 1 Mg Tablet PO 06/04/20 09:01 1 mg DAILY MILANA Administration Atorvastatin Calcium 20 mg 05/06/20 09:00 05/06/20 13:46 Atorvastatin 20 Mg Tablet PO 20 mg DAILY MILANA Administration Carbidopa/Levodopa 4 tablet 05/04/20 21:20 1
[2020-05-07] MEDS: lisinopriL 20 MG TABLET 40 MG PO (11:31)
[2020-05-07] MEDS: dilTIAZem HCL CD 180 MG CAP.ER.24H PO (11:32)
[2020-05-07] MEDS: CARBIDOPA/LEVODOPA 25/100 MG CR TABLET 2 TABLET PO (11:32)
[2020-05-07] MEDS: PANTOPRAZOLE 40 MG TABLET PO (11:32)
[2020-05-07] MEDS: ATORVASTATIN 20 MG TABLET PO (11:32)
[2020-05-07] MEDS: MAGNESIUM OXIDE 400 MG TABLET PO (11:32)
[2020-05-07] MEDS: ANASTROZOLE (*CHEMO) 1 MG TABLET PO (11:32)
[2020-05-07] MEDS: POTASSIUM CHLORIDE 20 MEQ PACKET (FOR LIQUID) 40 MEQ PO (13:52)
--- NOTE | 2020-05-07 14:58 | PM.IMPN ---
Progress Note: A&P Assessment and Plan (1) Acute respiratory distress: Code(s): R06.03 - Acute respiratory distress Status: Acute Assessment and Plan: Patient had an episodes of respiratory difficulty possibly from aspiration. Stat cXR and ABG ordered. Make NPO for now. Will change abx to Zosyn since original CXR concerning for PNA and thus more likely aspiration. Follow up on results. Currently stable and will wean o2 as tolerated. CXR showing airspace opacities in the lower lung zones with improvement on the right, consistent with atelectasis versus pneumonia. ABG 7.44/41/127 on 5L. Wean O2 as toelrated. n repeat exam, she is resting comfortable. Called by RN and now patietn back to room air. MRI does show acute CVA to explain the new neurologic changes. Discussed with family by phone. Orlin resume diet and add aspiration precautions, out of bed, etc. She just had MBS yestreday that was okay. 05/07/20 14:58 patient is 84-year-old female a resident of care home with history of dementia, hypertension, hyperlipidmia, DVT pulmonary emboli on anticoagulation, normally patient is oriented X1 to herself, and had been able to feed herself and minimal interaction however her symptoms were getting more worsen and confused and initially patient was seen to emergency department at [place] and was found to have a UTI and started on oral antibiotic and discharge back to the nursing however her symptoms were getting more worse and patient was sent to the hospital ER, patient was found to have atrial fibrillation with RVR initially patient was given IV diltiazem, patient heart rate trended down then again went back into AFib RVR patient was started on diltiazem drip and continued her Xarelto for anticoagulation, patient's rate was trending down was seen by throw out clerk and was switched to long acting diltiazem as HR remains stable, cardiac echo showed normal systolic function with ejection fraction of 65% and Left atrial chamber dimension is severely enlarged most likely secondary to chronic atrial fibrillation, patient UA is positive for leuko Estrace and white count, urine cultures growing Proteus mirabilis and sensitive to Rocephin, however on 05/06 patient had respiratory difficulty repeat chest x-ray showed infiltrate concerning for aspiration pneumonia Rocephin was which to Zosyn, was also concern change in patient mental status and MRI of the brain showed acute infarct involving the left basal ganglia and left internal capsule. patient is anticoagulated with Xarelto for atrial fibrillation, patient appeared to be her baseline, will continue PT OT and further recommendation to follow (2) Neurological symptoms: Code(s): R29.90 - Unspecified symptoms and signs involving the nervous system Status: Acute Assessment and Plan: Altered mental status possibly related to PNA and/or UTI. CT brain showing old CVA. She may have had a new CVA which could explain these changes. Follow clinically. She is on Xarelto for stroke prophylaxis. (3) Atrial fibrillation with rapid ventricular response: Code(s): I48.91 - Unspecified atrial fibrillation Status: Acute Assessment and Plan: Tele reviewed. HR better controlled. Patient was on diltiazem drip but transitioned to oral now. Continue anticoagulation with Xarelto (4) Urinary tract infection: Qualifiers: Hematuria presence: with hematuria Urinary tract infection type: site unspecified Qualified Code(s): N39.0 - Urinary tract infection, site not specified; R31.9 - Hematuria, unspecified Code(s): N39.0 - Urinary tract infection, site not specified Status: Acute Assessment and Plan: UA noted. UCx growing GNB 50-100K. Awaiting sensitivities. Continue abx (5) Abnormal chest x-ray: Code(s): R93.89 - Abnormal findings on diagnostic imaging of other specified body structures Status: Acute
--- NOTE | 2020-05-07 19:00 | PC.NURSE ---
Patient transferred to room 254 from room 201 at 1840.
[2020-05-07] MEDS: CARBIDOPA/LEVODOPA 25/100 MG CR TABLET 4 TABLET PO (21:03)
[2020-05-07] MEDS: MEMANTINE HCL XR 28 MG CAP PO (21:04)
[2020-05-07] MEDS: DONEPEZIL HCL 10 MG TABLET PO (21:04)
[2020-05-07] MEDS: RIVAROXABAN 20 MG TABLET PO (21:04)
[2020-05-08] VITALS (7 sets, daily range): BP systolic 113–132; BP diastolic 48–72; PULSE 73–110; RESP 16; TEMP 36.1–36.8; O2SAT 94–98
[2020-05-08 05:57] LABS: Hematocrit 41.4 % (37.0-47.0); Hemoglobin 13.5 g/dL (12.0-15.0); Mean Corpuscular HGB Conc 32.6 g/dl (32-36); Mean Corpuscular Hemoglobin 28.7 pg (26-34); Mean Corpuscular Volume 88.1 fl (80-100); Mean Platelet Volume 9.6 fl (7.4-10.4); Platelet Count Result 213 k/mm3 (150-375); Red Cell Distribution Width 13.1 % (11.5-14.5); White Blood Count 9.5 K/mm3 (4.5-10.0)
[2020-05-08 06:11] LABS: Anion Gap 5 mmol/L (8-16); Blood Urea Nitrogen 20 mg/dL (7-17); Calcium 9.1 mg/dL (8.4-10.2); Carbon Dioxide 28 mmol/L (22-30); Chloride 104 mmol/L (98-107); Estimated CRCL calculation 43 ml/min; Estimated Glomerular Filt Rate > 60; Glucose 130 mg/dL (65-105); Potassium 4.1 mmol/L (3.4-5.0); Sodium 137 mmol/L (137-145)
[2020-05-08] MEDS: ATORVASTATIN 20 MG TABLET PO (10:14)
[2020-05-08] MEDS: CARBIDOPA/LEVODOPA 25/100 MG CR TABLET 2 TABLET PO (10:14)
[2020-05-08] MEDS: ANASTROZOLE (*CHEMO) 1 MG TABLET PO (10:14)
[2020-05-08] MEDS: PANTOPRAZOLE 40 MG TABLET PO (10:15)
[2020-05-08] MEDS: lisinopriL 20 MG TABLET 40 MG PO (10:15)
[2020-05-08] MEDS: MAGNESIUM OXIDE 400 MG TABLET PO (10:15)
[2020-05-08] MEDS: dilTIAZem HCL CD 180 MG CAP.ER.24H PO (10:15)
--- NOTE | 2020-05-08 11:46 | PM.PNCARD ---
Progress Note: A&P Assessment and Plan (1) Atrial fibrillation with rapid ventricular response: Code(s): I48.91 - Unspecified atrial fibrillation Status: Acute Assessment and Plan: Rate is nicely controlled. Taking cardizem CD without difficulty. Caution with extended release formulation should she not be able to swallow the capsule whole. In that case can return to cardizem 60 mg q 8 hours. Statin changed to rosuvastatin 10 mg due to interaction of simvastatin with cardizem Continue anticoagulation with Xarelto at 20 mg daily. 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 As she resides in a [place] [facility] [place], Enma CUETO will not schedule her to come to the office. Plan discussed with Dr Fish [id number] 05/08/2020 Subjective Date/time seen: 05/08/20 11:46 Interval history: Follow-up for: atrial fibrillation. Consulted to assist with rate control. Date of service:05/08/2020 Subjective: answers yes to every question Review of Systems Review of Systems: ROS unobtainable: Yes unobtainable due to medical condition and unobtainable due to mental status Exam Narrative: Exam Narrative: Elderly female laying comfortably in bed. Answering yes to every question Const: General: comfortable and no acute distress Nutritional Appearance: average body habitus Orientation/consciousness: Other orientation findings (unable to assess as will not say her name Answering yes to all questions) Limitations: altered mental status HENMT: Head: normal to inspection, normocephalic and atraumatic Ears: hearing grossly normal bilaterally General nose exam: Normal nares present and no epistaxis Face and sinus: normal facial exam Mouth: Yes moist mucous membranes and Yes dry mucous membranes Teeth and gingiva: other ( Multiple missing teeth) Eyes: General: appearance normal, both eyes and all related structures Sclera: sclerae normal Pupils: Equal, round and reactive pupils present Neck: Neck: supple and no JVD Resp: Effort & Inspection: normal respiratory effort Auscultation: clear to auscultation bilaterally Cardio: Jugular venous distension: no JVD Rate: regular rate Rhythm: abnormal rhythm irregularly irregular Bruits: no abdominal aortic bruits, no carotid bruits and no femoral bruits Peripheral pulses: radial pulses present bilateral 2+, posterior tibial pulses present bilateral diminished and dorsalis pedis present bilateral diminished GI: Auscultation: normal bowel sounds Urinary Catheter: Urinary Catheter: patent and draining and urine clear Skin: General skin exam: normal color and no rashes or lesions noted Neuro: General: patient oriented x3 Cranial nerves: Yes Equal, round and reactive pupils present Cognition (Neuro): abnormal cognition Extrem: General: no clubbing, cyanosis or edema Psych: Other: unable to assess Objective Data Vital Signs Vital Signs: Vital Signs - 24 hr 05/07/20 12:00 05/07/20 12:06 05/07/20 14:00 Temperature 35.9 C L Pulse Rate 94 95 91 Respiratory Rate 16 Blood Pressure 107/62 Pulse Oximetry 95 05/07/20 16:00 05/07/20 16:24 05/07/20 18:00 Temperature 35.9 C L Pulse Rate 76 80 89 Respiratory Rate 20 Blood Pressure 113/57 L Pulse Oximetry 95 05/07/20 20:00 05/07/20 21:21 05/08/20 00:00 Temperature 36.1 C L Pulse Rate 94 87 110 H Respiratory Rate 18 Blood Pressure 135/56 L Pulse Oximetry 95 05/08/20 01:50 05/08/20 04:00 05/08/20 04:37 Temperature 36.1 C L 36.8 C Pulse Rate 82 88 86 Respiratory Rate 16 16 Blood Pressure 132/59 L 132/72 Pulse Oximetry 94 97 05/08/20 08:55 Temperature Pulse Rate 85 Respiratory Rate
--- NOTE | 2020-05-08 12:49 | PM.DS ---
DS: Admitting Diagnosis Admitting Diagnosis Admitting Diagnosis: Afib w/ RVR, UTI, Pneumonia, Inrease confusion DS: Discharge Diagnosis Discharge Diagnosis (1) Acute respiratory distress: Code(s): R06.03 - Acute respiratory distress Status: Acute Assessment and Plan: Patient had an episodes of respiratory difficulty possibly from aspiration. Stat cXR and ABG ordered. Make NPO for now. Will change abx to Zosyn since original CXR concerning for PNA and thus more likely aspiration. Follow up on results. Currently stable and will wean o2 as tolerated. CXR showing airspace opacities in the lower lung zones with improvement on the right, consistent with atelectasis versus pneumonia. ABG 7.44/41/127 on 5L. Wean O2 as toelrated. n repeat exam, she is resting comfortable. Called by RN and now patietn back to room air. MRI does show acute CVA to explain the new neurologic changes. Discussed with family by phone. Orlin resume diet and add aspiration precautions, out of bed, etc. She just had MBS yestreday that was okay. 05/07/20 14:58 patient is 84-year-old female a [facility] with history of dementia, hypertension, hyperlipidmia, DVT pulmonary emboli on anticoagulation, normally patient is oriented X1 to herself, and had been able to feed herself and minimal interaction however her symptoms were getting more worsen and confused and initially patient was seen to emergency department at [facility] and was found to have a UTI and started on oral antibiotic and discharge back to the nursing however her symptoms were getting more worse and patient was sent to the hospital ER, patient was found to have atrial fibrillation with RVR initially patient was given IV diltiazem, patient heart rate trended down then again went back into AFib RVR patient was started on diltiazem drip and continued her Xarelto for anticoagulation, patient's rate was trending down was seen by upscale security officer and was switched to long acting diltiazem as HR remains stable, cardiac echo showed normal systolic function with ejection fraction of 65% and Left atrial chamber dimension is severely enlarged most likely secondary to chronic atrial fibrillation, patient UA is positive for leuko Estrace and white count, urine cultures growing Proteus mirabilis and sensitive to Rocephin, however on 05/06 patient had respiratory difficulty repeat chest x-ray showed infiltrate concerning for aspiration pneumonia Rocephin was which to Zosyn, was also concern change in patient mental status and MRI of the brain showed acute infarct involving the left basal ganglia and left internal capsule. patient is anticoagulated with Xarelto for atrial fibrillation, patient appeared to be her baseline, will continue PT OT and further recommendation to follow (2) Neurological symptoms: Code(s): R29.90 - Unspecified symptoms and signs involving the nervous system Status: Acute Assessment and Plan: Altered mental status possibly related to PNA and/or UTI. CT brain showing old CVA. She may have had a new CVA which could explain these changes. Follow clinically. She is on Xarelto for stroke prophylaxis. (3) Atrial fibrillation with rapid ventricular response: Code(s): I48.91 - Unspecified atrial fibrillation Status: Acute Assessment and Plan: Tele reviewed. HR better controlled. Patient was on diltiazem drip but transitioned to oral now. Continue anticoagulation with Xarelto (4) Urinary tract infection: Qualifiers: Hematuria presence: with hematuria Urinary tract infection type: site unspecified Qualified Code(s): N39.0 - Urinary tract infection, site not specified; R31.9 - Hematuria, unspecified Code(s): N39.0 - Urinary tract infection, site not specified Status: Acute Assessment and Plan: UA noted. UCx growing GNB 50-100K. Awaiting sensitivities. Continue abx (5) Abnormal chest x-ray:
== END 2020-05-08 17:12 | DRG 64 ==
LOC: ANHED 14:38 → ANHIMU 15:35 → ANH2MED 05-07 17:58
PROVIDERS: Nurse Practitioner; Physician Assistant; Admitting Provider Family Medicine; Emergency Provider Emergency Medicine; Visit Provider Internal Medicine
DX: I63.9 Cerebral infarction, unspecified (principal); J69.0 Pneumonitis due to inhalation of food and vomit; N39.0 Urinary tract infection, site not specified; R41.0 Disorientation, unspecified; Z20.828 Contact with and (suspected) exposure to other viral communicable diseases; R31.9 Hematuria, unspecified; B96.4 Proteus (mirabilis) (morganii) as the cause of diseases classified elsewhere; R93.89 Abnormal findings on diagnostic imaging of other specified body structures; I48.91 Unspecified atrial fibrillation; I11.0 Hypertensive heart disease with heart failure; I50.9 Heart failure, unspecified; G20 Parkinson's disease; F02.80 Dementia in other diseases classified elsewhere, unspecified severity, without behavioral disturbance, psychotic disturbance, mood disturbance, and anxiety; F79 Unspecified intellectual disabilities; I25.10 Atherosclerotic heart disease of native coronary artery without angina pectoris; E78.5 Hyperlipidemia, unspecified; K21.9 Gastro-esophageal reflux disease without esophagitis; Z66 Do not resuscitate; Z79.01 Long term (current) use of anticoagulants; Z86.711 Personal history of pulmonary embolism; Z86.718 Personal history of other venous thrombosis and embolism; Z86.73 Personal history of transient ischemic attack (TIA), and cerebral infarction without residual deficits
CPT/HCPCS: 36415; 36600; 51702; 70450; 70553; 71045; 80048; 80053; 81001; 82805; 83605; 83735; 84439; 84443; 84480; 85025; 85027; 87040; 87077; 87086; 87088; 87186; 87635; 92611; 93005; 93306; 96361; 96374; 96375; 99285; A9270; A9577; C9803; J0456; J0696; J1956; J2543; J7030; U0003

== ENCOUNTER 2022-06-02 18:56 | Emergency (ER) | payer MEDICARE, MEDICAID, SELFPAY ==
[2022-06-02] VITALS (36 sets, daily range): BP systolic 105–150; BP diastolic 56–87; PULSE 78–95; RESP 17–30; TEMP 36.3; O2SAT 97–100
--- NOTE | ~2022-06-02 | CT_ITS ---
EXAMINATION: CTA chest PE protocol DATE: 06/02/2022 23:15 INDICATION: Shortness of breath. Hypoxia. TECHNIQUE: Computed tomography angiography (CTA) of the chest was performed with 100 mL Omnipaque-350 intravenous contrast timed to evaluate the pulmonary arteries. Coronal maximum intensity projection 3D-reconstructions were created by the technologist. Automated exposure control and iterative reconst ruction technique were employed. Exam dose: 818.74 mGy-cm total exam DLP. COMPARISON: 06/02/2022 portable AP chest FINDINGS: Due to motion the peripheral pulmonary arteries are not optimally evaluated. Otherwise no p ulmonary embolism is noted. There is thoracic aortic aortic and great vessel and coronary artery calcification. Cardiomegaly. No thoracic aortic aneurysm or dissection. No hilar or mediastinal mass lesion or lymphadenopathy. There are calcified pulmonary granulomas and calcified hilar and subcarinal nodes consistent with old pulmonary granulomatous disease. No pericardial or pleural effusion. There is minimal dependent right lower lobe and lingular atelectasis and more prominent posterior bas ilar left lower lobe infiltrate and/atelectasis Small sliding hiatal hernia. There are calcified gallstones and/or calcification of the wall of the gallbladder. Approximately 1.5 x 1.1 cm hypoattenuating lesion in the region of the neck of the pancreas. Pancreat ic malignant neoplasm is not excluded. Normal morphology of the adrenal glands. Very prominent bridging osteophytes of the cervical spine and prominent degenerative disc disease in the lower cervical spine. 4 mm anterolisthesis at C7-T1. Diffuse idiopathic skeletal hyperostosis of the thoracic spine. IMPRESSION: No apparent pulmonary embolism Left lower lobe infiltrate and/atelectasis and minimal dependent lingular and right lower lobe atelec tasis Calcified gallbladder wall and/or calcified gallstones Possible 11 x 15 mm pancreatic neoplasm Small sliding hiatal hernia Dr. Lopez notified emergency room physician Dr. Duenas in person in the emergency room at 0920 hours on 06/03/20202021 of the hypoattenuating lesion of the pancreas. CT abdomen pelvis examination was r ecommended to Dr. Duenas. Reviewed, dictated and finalized at [facility]. Reviewed, dictated and finalized at [facility]. ERY/ORDNANCE OFFICER IMPRESSION: No apparent pulmonary embolism Left lower lobe infiltrate and/atelectasis and minimal dependent lingular and r ight lower lobe atelectasis Calcified gallbladder wall and/or calcified gallstones Possible 11 x 15 mm pancreatic neoplasm Small sliding hiatal hernia Dr. Lopez notified emergency room physician Dr. Duenas in person in the emergen cy room at 0920 hours on 06/03/20202021 of the hypoattenuating lesion of the p ancreas. CT abdomen pelvis examination was recommended to Dr. Duenas.
--- NOTE | ~2022-06-02 | XR_ITS ---
XR chest 1V portable DATE: 06/02/2022 20:16 INDICATION: Shortness of breath, wheezing. Hypoxia. History of atrial fibrillation, coronary disease, congestive heart failure, hypertension, deep venous thrombosis. TECHNIQUE: Portable upright AP chest on 06/02/2022 at 2009 hours COMPARISON: 05/06/2020 portable AP chest FINDINGS: Cardiomegaly. Aortic calcification and mild unfolding. No hilar or mediastinal enlargement. Mild bilateral apical capping. There is mild infiltrate or atelectasis at the lung bases, greater on the left. The lungs otherwise appear clear. Pulmonary vascularity appears within normal range. There is minimal if any pleural effusion. No pneumothorax. Diffuse osteopenia. Degenerative spurring of the thoracic spine. IMPRESSION: Cardiac megaly, aortic atherosclerosis Mild infiltrate or atelectasis is suggested at the lung bases Reviewed, dictated and finalized at location [facility]. AURANT AREA MANAGER
--- NOTE | 2022-06-02 19:15 | ECG_ITS ---
Measurements Intervals [place] Rate: 84 P: SC: 0 QRS: 10 QRSD: 70 T: 27 QT: 373 QTc: 443 Interpretive Statements ATRIAL FIBRILLATION LOW QRS VOLTAGE IN PRECORDIAL LEADS ABNORMAL ECG COMPARED TO ECG 05/04/2020 10:30:25 HEART RATE HAS DECREASED Electronically Signed On 06-03-2022 6:30:51 ADULT LITERACY INSTRUCTOR by Geovanni Griffin D.O.
--- NOTE | 2022-06-02 19:22 | ED.SOB ---
HPI - SOB/Dyspnea General Chief Complaint: Shortness of Breath/Dyspnea Stated Complaint: painful respirations s/p aspiration Time Seen by Provider: 06/02/22 19:05 Source: EMS, RN notes reviewed and old records reviewed Mode of arrival: EMS Limitations: clinical condition History of Present Illness HPI Narrative: This is an 86 year old female with history of dementia, CVA, aspiration, PE, DVT who presents from nursing facility who presents for evaluation of hypoxia and possible aspiration. PAtient is nonverbal but able to follow some commands. On review of records, patient has been nonverbal since stroke. EMS reports patient was 85% on room air on their arrival and they placed her on 4 L NC. Related Data Home Medications Medication Instructions Recorded Confirmed anastrozole 1 mg tablet 1 mg PO DAILY 05/04/20 05/04/20 carbidopa ER 50 mg-levodopa 200 mg 1 tablet PO DAILY 05/04/20 05/04/20 tablet,extended release carbidopa ER 50 mg-levodopa 200 mg 2 tablet PO HS 05/04/20 05/04/20 tablet,extended release lisinopril 40 mg tablet 40 mg PO DAILY 05/04/20 05/04/20 memantine ER 28 mg-donepezil 10 mg 1 cap PO DAILY 05/04/20 05/04/20 capsule sprinkle,ext.release 24 hr (Namzaric) omeprazole 20 mg capsule,delayed 20 mg PO DAILY 05/04/20 05/04/20 release rivaroxaban 20 mg tablet (Xarelto) 20 mg PO HS 05/04/20 05/04/20 sulfamethoxazole 800 1 tablet PO BID 05/04/20 05/04/20 mg-trimethoprim 160 mg tablet (Bactrim DS) trazodone 50 mg tablet 25 mg PO HS 05/04/20 05/04/20 Allergies Allergy/AdvReac Type Severity Reaction Status Date / Time aspirin Allergy Unknown Unknown Verified 05/04/20 11:31 caffeine Allergy Unknown Unknown Verified 05/04/20 11:31 codeine Allergy Unknown Unknown Verified 05/04/20 11:31 propoxyphene Allergy Unknown Unknown Verified 05/04/20 11:31 Review of Systems Review of Systems: ROS unobtainable: Yes unobtainable due to medical condition (patient is nonverbal at baseline) [facility] Past Medical History Medical History (Updated 11/14/22 @ 00:24 by Bere Emerson MD) Atrial fibrillation Breast cancer Chronic GERD Congestive heart failure Coronary artery disease Current use of nursing home anticoagulation Dementia Dyslipidemia Fracture of left hip requiring operative repair History of CVA (cerebrovascular accident) History of DVT (deep vein thrombosis) History of pulmonary embolism Hypertension Intellectual disability Major depression Parkinsonism Surgical History Surgical History History of right mastectomy Family History Family History Other Family history unknown Social History Social History Social History: Surrogate decision maker: Diamond Rivera. Code status: Do not resuscitate, comfort focus treatment. Smoking status: Unknown if ever smoked Alcohol intake: unknown Substance use: unknown Additional living arrangements comments: Resident of [facility]. Spiritual care concerns: No Exam Const: General: no acute distress Nutritional Appearance: obese Other: patient is nonverbal at baseline, chronically ill appearing HENMT: Head: normal to inspection Throat: posterior oropharynx normal and uvula midline Eyes: EOM: EOMs intact bilaterally Chest: Chest palpation & inspection: normal inspection of the chest Resp: Effort & Inspection: normal respiratory effort Auscultation: clear to auscultation bilaterally Cardio: Rate: regular rate Rhythm: abnormal rhythm Heart sounds: no murmurs GI: GI Palp: Yes Soft to palpation, No Tenderness to palpation present (GI), No Guarding due to palpation present (GI) and No Rigid due to palpation Auscultation: normal bowel sounds Skin: General skin exam: normal color Rashes: no rashes Extrem: General: edema Psych: Mental Status: mental status
--- NOTE | 2022-06-02 19:30 | PC.NURSE ---
[facility] called by this RN x 2 @ [phone]. No answer.
[2022-06-02 19:58] LABS: Basophils Absolute Auto 0.1 K/mm3 (0.0-0.1); Basophils Percent Auto 0.5 % (0.2-1.2); Eosinophils Absolute Auto 0.1 K/mm3 (0-0.3); Eosinophils Percent Auto 1.4 % (0-4.4); Hematocrit 41.1 % (37.0-47.0); Hemoglobin 12.7 g/dL (12.0-15.0); Immature Granulocyte Absolute 0.03 K/mm3 (0.00-0.031); Immature Granulocyte Percent A 0.3 % (0-0.5); Lymphocytes Absolute Auto 1.34 K/mm3 (0.9-3.2); Lymphocytes Percent Auto 14.1 % (18.3-44.2); Mean Corpuscular HGB Conc 30.9 g/dl (32-36); Mean Corpuscular Hemoglobin 29.5 pg (26-34); Mean Corpuscular Volume 95.6 fl (80-100); Monocytes Absolute Auto 0.8 K/mm3 (0.1-0.6); Monocytes Percent Auto 8.4 % (2.6-8.5); Neutrophils Absolute Auto 7.2 K/mm3 (1.3-6.7); Neutrophils Percent Auto 75.3 % (45.5-73.1); Platelet Count Result 192 k/mm3 (150-375); Red Cell Distribution Width 14.3 % (11.5-14.5); White Blood Count 9.5 K/mm3 (4.5-10.0)
[2022-06-02 20:03] LABS: Alveolar/Arterial O2 Gradient 30.8 mmHg; Base Excess ABG 4.2 mEq/l (+/-2.0); Fractional Inspired Oxygen 30 %; HCO3 ABG 31.5 mEq/l (22.0-26.0); Oxygen Content ABG 19.2 %vol (16.0-22.0); Oxygen Saturation ABG 97.9 % (95.0-100.0); Oxyhemoglobin 96.7 % THb (90.0-100.0); PCO2 ABG 58.7 mmHg (35.0-45.0); PO2 ABG 114.1 mmHg (80.0-100.0); pH ABG 7.347 (7.350-7.450)
[2022-06-02 20:06] LABS: Device NASAL CANNULA; Modified Allen's Test Pass; Site Drawn LEFT RADIAL
[2022-06-02 20:09] LABS: Lactic Acid Reflex 2.6 mmol/L (0.7-2.0)
[2022-06-02 20:10] LABS: INR 2.4
[2022-06-02 20:11] LABS: Partial Thromboplastin Time 35.3 SECONDS (22.3-36.8)
[2022-06-02] MEDS: ALBUTEROL SULFATE NEB 2.5 MG/3 ML INH 5 MG INHALATION (20:13)
[2022-06-02] MEDS: IPRATROPIUM BR 0.02% INH SOLN 0.5 MG/2.5 ML VIAL INHALATION (20:13)
[2022-06-02 20:34] LABS: Influenza A QL RT-PCR Negative (Negative); Influenza B QL RT-PCR Negative (Negative); SARS-CoV-2 RNA PCR Negative
[2022-06-02 20:55] LABS: Alanine Aminotransferase 14 U/L (6-35); Albumin Level 3.6 g/dL (3.5-5.1); Alkaline Phosphatase 92 U/L (38-126); Anion Gap 7 mmol/L (8-16); Aspartate Amino Transferase 30 U/L (14-36); Bilirubin,Total 0.4 mg/dL (0.2-1.3); Blood Urea Nitrogen 21 mg/dL (7-17); Calcium 8.8 mg/dL (8.4-10.2); Carbon Dioxide 35 mmol/L (22-30); Chloride 99 mmol/L (98-107); Estimated CRCL calculation 53 ml/min; Estimated Glomerular Filt Rate > 60; Glucose 138 mg/dL (65-110); Potassium 4.3 mmol/L (3.4-5.0); Sodium 141 mmol/L (137-145)
[2022-06-02 21:01] LABS: NT Pro B Type Natriuretic Pept 955 pg/mL (5-100); Troponin I < 0.012 ng/mL (0.000-0.034)
[2022-06-02 22:55] LABS: Reflex Lactic Acid Yes or No Add Lactic
[2022-06-03 00:04] VITALS: BP 124/74; PULSE 85; RESP 22; O2SAT 98
[2022-06-03 00:06] LABS: Lactic Acid 2.1 mmol/L (0.7-2.0)
== END 2022-06-03 00:50 ==
PROVIDERS: Emergency Provider General Practice
DX: R09.02 Hypoxemia (principal); K86.89 Other specified diseases of pancreas; R91.8 Other nonspecific abnormal finding of lung field; Z20.822 Contact with and (suspected) exposure to COVID-19; F03.90 Unspecified dementia, unspecified severity, without behavioral disturbance, psychotic disturbance, mood disturbance, and anxiety; I50.9 Heart failure, unspecified; I11.0 Hypertensive heart disease with heart failure; I25.10 Atherosclerotic heart disease of native coronary artery without angina pectoris; E78.5 Hyperlipidemia, unspecified; G20 Parkinson's disease; F79 Unspecified intellectual disabilities; K21.9 Gastro-esophageal reflux disease without esophagitis; Z90.11 Acquired absence of right breast and nipple; Z85.3 Personal history of malignant neoplasm of breast; Z86.711 Personal history of pulmonary embolism; Z86.718 Personal history of other venous thrombosis and embolism; Z86.73 Personal history of transient ischemic attack (TIA), and cerebral infarction without residual deficits; Z79.01 Long term (current) use of anticoagulants; Z66 Do not resuscitate; I70.0 Atherosclerosis of aorta; I51.7 Cardiomegaly; K44.9 Diaphragmatic hernia without obstruction or gangrene
CPT/HCPCS: 36415; 36600; 71045; 71275; 80053; 82805; 83605; 83880; 84484; 85025; 85610; 85730; 87040; 87636; 93005; 94640; 99284; Q9967

== ENCOUNTER 2022-07-11 09:32 | Outpatient (CLI) | payer MEDICARE, MEDICAID, SELFPAY ==
--- NOTE | ~2022-07-11 | CT_ITS ---
CT Abdomen and Pelvis with contrast. History: Pancreatic mass. Spiral CT of the abdomen and pelvis was performed after the administration of intravenous contrast. 1 00 cc of Omnipaque 350 was administered intravenously without complication. Dose reduction technique was used on this scan by utilizing automated exposure control and iterative reconstruction technique. The dose-length product (DLP) was 1070.15 mGy-cm. Findings: Scans through the lung bases demonstrate small left pleural effusion and minimal right pleu ral effusion. There is a 1.5 x 1.0 cm hypodense mass at the pancreatic neck/proximal body (axial images 78-80). Thi s is suggestion of communication with the main pancreatic duct, with the main pancreatic duct appeari ng more prominent towards the pancreatic head as compared to the more distal portion. The liver, spleen, and adrenal glands are within normal limits. Calcified gallbladder wall versus suzi cified gallstones noted. Nonobstructing right renal stone measures up to 18 mm in diameter. Small jefferson ateral renal cysts noted. No evidence of aortic aneurysm. No lymphadenopathy is seen. Visualized bowel loops are unremarkable. No ascites. Impression: 1.5 x 1.0 cm hypodense pancreatic mass, as detailed above. 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 Recommend MRCP and pre and postcontrast MR to further evaluate. Porcelain gallbladder and/or cholelithiasis. Nonobstructing right renal stone, as detailed above. Small left pleural effusion and minimal right pleural effusion. Reviewed, dictated and finalized at location . IDE POWDER PROCESSOR Impression: 1.5 x 1.0 cm hypodense pancreatic mass, as detailed above. Constellation of diaz ging finding suggests side branch IPMN, versus the possibility of small mucinou s/serous tumor, or even a small adenocarcinoma. Recommend MRCP and pre and post contrast MR to further evaluate. Porcelain gallbladder and/or cholelithiasis. Nonobstructing right renal stone, as detailed above. Small left pleural effusion and minimal right pleural effusion.
== END 2022-07-11 09:33 | disposition home or self-care (01) ==
LOC: ANHIMG 09:33
DX: K86.89 Other specified diseases of pancreas (principal); N20.0 Calculus of kidney; J90 Pleural effusion, not elsewhere classified; K82.9 Disease of gallbladder, unspecified
CPT/HCPCS: 74160; Q9967

== ENCOUNTER 2022-07-17 18:24 | Inpatient (IN) | payer MEDICARE, MEDICAID, SELFPAY ==
[2022-07-17] VITALS (21 sets, daily range): BP systolic 99–150; BP diastolic 46–116; PULSE 95–168; RESP 16–32; TEMP 35.9; O2SAT 94–100
--- NOTE | ~2022-07-17 | XR_ITS ---
EXAMINATION: XR chest 1V portable Exam Date/Time: 07/17/2022 19:00 PROPERTY ADJUSTER HISTORY: low o2 sat, PNEUMONIA X 3 DAYS, PT NONVERBAL Comparison: 06/02/2022. RESULT: Lines, tubes, and devices: None. Lungs and pleura: Increased reticular opacities with cephalization. Increased left basilar airspace disease and left lateral costophrenic angle blunting. Cardiomediastinal silhouette: Stable. Other: No acute osseous or upper abdominal finding. IMPRESSION: Worsening left basilar consolidation. Increasing size of the small left pleural effusion. Mild inters titial edema. Reviewed, dictated and finalized at location K. ERTY ADJUSTER IMPRESSION: Worsening left basilar consolidation. Increasing size of the small left pleural effusion. Mild interstitial edema.
--- NOTE | ~2022-07-17 | XR_ITS ---
EXAMINATION: XR barium swallow modified DATE: 07/19/2022 14:58 INDICATION: Dysphagia. TECHNIQUE: The patient was given barium-containing material of multiple consistencies to swallow by t clint speech pathologist while I performed fluoroscopy. Fluoroscopy exposure time was 1.9 minutes. The n umber of fluoroscopy images saved to the PACS was 2. Dose-area product was 2.065 Gy-cm^2. FINDINGS: There is reduced laryngeal elevation. There is laryngeal penetration with thin liquids and nectar thi ck liquids. IMPRESSION: 1. Laryngeal penetration with thin liquids and nectar thick liquids. 2. Please refer to the speech therapy report for recommendations. Reviewed, dictated and finalized at location A. GER QUALITY IMPROVEMENT
--- NOTE | ~2022-07-17 | US_ITS ---
EXAMINATION: US venous doppler [facility] DATE: 07/19/2022 15:52 INDICATION: Lower limb edema. TECHNIQUE: Grayscale ultrasound images without and with compression and Doppler ultrasound images of the bilateral lower extremity veins were obtained. COMPARISON: None. FINDINGS: The visualized portions of right common femoral vein, profunda (deep) femoral vein, femoral vein, pop liteal vein, peroneal veins, posterior tibial veins, and greater saphenous vein outflow are patent. The visualized portions of left common femoral vein, profunda femoral vein, femoral vein, popliteal v ein, peroneal veins, posterior tibial veins, and greater saphenous vein outflow are patent. IMPRESSION: 1. No deep venous thrombosis. Reviewed, dictated and finalized at location A. [facility]
--- NOTE | ~2022-07-17 | XR_ITS ---
EXAMINATION: XR chest 1V portable DATE: 07/20/2022 06:36 INDICATION: Shortness of breath. TECHNIQUE: A single frontal view of the chest was obtained. COMPARISON: Chest single view 07/17/2022, 06/02/2022, chest CT 06/02/2022 FINDINGS: There are airspace opacities at the lung bases. There is an interstitial pattern, consisten t mild pulmonary edema. No pleural effusion or pneumothorax. Cardiomegaly is noted. There is prominen t extrapleural fat in the lower chest. IMPRESSION: 1. Mild pulmonary edema. 2. Airspace opacities at the lung bases, consistent with atelectasis or less likely pneumonia. 3. Cardiomegaly. Reviewed, dictated and finalized at location A. CLEANER IMPRESSION: 1. Mild pulmonary edema. 2. Airspace opacities at the lung bases, consistent with atelectasis or less li remi pneumonia. 3. Cardiomegaly.
--- NOTE | 2022-07-17 18:36 | ECG_ITS ---
Measurements Intervals [place] Rate: 91 P: HI: 0 QRS: 7 QRSD: 74 T: 79 QT: 335 QTc: 414 Interpretive Statements ATRIAL FIBRILLATION LOW QRS VOLTAGE IN PRECORDIAL LEADS [QRS DEFLECTION < 1.0 mV IN CHEST LEADS] POSSIBLE ANTERIOR MYOCARDIAL INFARCTION , PROBABLY OLD [30 ms Q WAVE IN V3/V4, OR R < 0.2 mV IN V4] ABNORMAL RHYTHM ECG COMPARED TO ECG 06/02/2022 20:03:04 NO SIGNIFICANT CHANGES Electronically Signed On 07-18-2022 14:45:14 STRIPPER MACHINE OPERATOR by Priscilla Galvan M.D.
[2022-07-17 19:22] LABS: Prothrombin Time 21.6 Seconds (11.1-14.7)
[2022-07-17 19:23] LABS: Partial Thromboplastin Time 32.1 SECONDS (22.3-36.8)
[2022-07-17 19:26] LABS: Alanine Aminotransferase 15 U/L (6-35); Albumin Level 3.7 g/dL (3.5-5.1); Alkaline Phosphatase 102 U/L (38-126); Anion Gap 6 mmol/L (8-16); Aspartate Amino Transferase 33 U/L (14-36); Bilirubin,Total 0.4 mg/dL (0.2-1.3); Blood Urea Nitrogen 34 mg/dL (7-17); Calcium 8.5 mg/dL (8.4-10.2); Carbon Dioxide 39 mmol/L (22-30); Chloride 97 mmol/L (98-107); Estimated CRCL calculation 48 ml/min; Estimated Glomerular Filt Rate > 60; Glucose 103 mg/dL (65-110); Potassium 4.9 mmol/L (3.4-5.0); Sodium 142 mmol/L (137-145)
[2022-07-17 19:27] LABS: Basophils Percent Auto 0.4 % (0.2-1.2); Eosinophils Absolute Auto 0.1 K/mm3 (0-0.3); Eosinophils Percent Auto 0.7 % (0-4.4); Hemoglobin 12.3 g/dL (12.0-15.0); Immature Granulocyte Absolute 0.05 K/mm3 (0.00-0.031); Immature Granulocyte Percent A 0.5 % (0-0.5); Lymphocytes Absolute Auto 2.29 K/mm3 (0.9-3.2); Lymphocytes Percent Auto 21.2 % (18.3-44.2); Mean Corpuscular HGB Conc 28.6 g/dl (32-36); Mean Corpuscular Hemoglobin 28.5 pg (26-34); Mean Corpuscular Volume 99.5 fl (80-100); Mean Platelet Volume 9.1 fl (7.4-10.4); Monocytes Absolute Auto 1.3 K/mm3 (0.1-0.6); Monocytes Percent Auto 11.6 % (2.6-8.5); Neutrophils Absolute Auto 7.1 K/mm3 (1.3-6.7); Neutrophils Percent Auto 65.6 % (45.5-73.1); Nucleated Red Blood Cells Perc 0.2 % (0.0-0.2); Platelet Count Result 225 k/mm3 (150-375); Red Blood Count 4.32 M/mm3 (4.2-5.4); Red Cell Distribution Width 13.9 % (11.5-14.5); White Blood Count 10.8 K/mm3 (4.5-10.0)
[2022-07-17 19:37] LABS: NT Pro B Type Natriuretic Pept 2710 pg/mL (5-100); Troponin I 0.013 ng/mL (0.000-0.034)
[2022-07-17 19:38] LABS: Anisocytosis 1+ (NORMAL); Hypochromasia 1+ (NORMAL); Ovalocytes 1+ (NORMAL); Platelet Estimate Adequate (Adequate); Schistocytes None Seen (NORMAL); Stomatocytes 1+ (NORMAL)
[2022-07-17 19:45] LABS: Influenza A QL RT-PCR Negative (Negative); Influenza B QL RT-PCR Negative (Negative); SARS-CoV-2 RNA PCR Negative
[2022-07-17] MEDS: methylPREDNISolone SOD SUCC 125 MG VIAL IV PUSH (19:52)
[2022-07-17] MEDS: ALBUTEROL SULFATE NEB 2.5 MG/3 ML INH 15 MG INHALATION (19:53)
[2022-07-17] MEDS: IPRATROPIUM BR 0.02% INH SOLN 0.5 MG/2.5 ML VIAL 1 MG INHALATION (19:54)
--- NOTE | 2022-07-17 19:56 | PM.IMHP ---
H&P: HPI History of Present Illness Date/Time: 07/17/22 19:56 Chief Complaint: Shortness of breath Narrative: This is an 86-year-old female prison resident past medical history significant for dysphagia, dementia, atrial fibrillation, rate controlled, anticoagulated, breast cancer, GERD, Parkinson's disease, was brought for evaluation due to shortness of breath, desaturation, patient had been seen couple of days before and sent back on oral antibiotics. Patient is at baseline nonverbal currently at the time of my admit my visit patient is obtunded, she is on supplemental oxygen requiring high-flow by nasal cannula Airvo. A chest x-ray repeated showed worsening of lung consolidation. Patient is been admitted for further evaluation management and treatment. Review of Systems Review of Systems: ROS unobtainable: Yes unobtainable due to medical condition (Respiratory failure) and unobtainable due to mental status (Lethargy) PMFSH Past Medical History Medical History (Updated 07/18/22 @ 01:15 by Panfilo Sepulveda MD) Atrial fibrillation Breast cancer Chronic GERD Congestive heart failure Coronary artery disease Current use of group home anticoagulation Dementia Dyslipidemia Fracture of left hip requiring operative repair History of CVA (cerebrovascular accident) History of DVT (deep vein thrombosis) History of pulmonary embolism Hypertension Intellectual disability Major depression Parkinsonism Surgical History Surgical History History of right mastectomy Family History Family History Other Family history unknown Social History Social History Social History: Surrogate decision maker: Diamond Rivera. Code status: Do not resuscitate, comfort focus treatment. Smoking status: Unknown if ever smoked Alcohol intake: unknown Substance use: unknown Additional living arrangements comments: Resident of [facility]. Spiritual care concerns: No Meds Home Medications and Allergies Home Medications Medication Instructions Recorded Confirmed Type anastrozole 1 mg tablet 1 mg PO DAILY 05/04/20 07/18/22 History carbidopa ER 50 mg-levodopa 200 mg 1 tablet PO DAILY 05/04/20 07/18/22 History tablet,extended release carbidopa ER 50 mg-levodopa 200 mg 2 tablet PO HS 05/04/20 07/18/22 History tablet,extended release lisinopril 40 mg tablet 40 mg PO DAILY 05/04/20 07/18/22 History memantine ER 28 mg-donepezil 10 mg 1 cap PO DAILY 05/04/20 07/18/22 History capsule sprinkle,ext.release 24 hr (Namzaric) omeprazole 20 mg capsule,delayed 20 mg PO DAILY 05/04/20 07/18/22 History release rivaroxaban 20 mg tablet (Xarelto) 20 mg PO HS 05/04/20 07/18/22 History atorvastatin 20 mg tablet 20 mg PO DAILY #30 tabs 05/08/20 07/18/22 Rx diltiazem HCl 180 mg 180 mg PO QAM #30 caps 05/08/20 07/18/22 Rx capsule,extended release 24 hr, controlled magnesium oxide 400 mg (241.3 mg 400 mg PO QAM #30 tabs 05/08/20 07/18/22 Rx magnesium) tablet Lactobacillus acidophilus 10 mg PO BID 07/18/22 07/18/22 History (Acidophilus capsule) amoxicillin 875 mg-potassium 1 tablet PO BID 07/18/22 07/18/22 History clavulanate 125 mg tablet Allergies Allergy/AdvReac Type Severity Reaction Status Date / Time aspirin Allergy Unknown Unknown Verified 07/17/22 19:49 caffeine Allergy Unknown Unknown Verified 07/17/22 19:49 codeine Allergy Unknown Unknown Verified 07/17/22 19:49 propoxyphene Allergy Unknown Unknown Verified 07/17/22 19:49 Vital Signs Vital Signs - 24 hr 07/17/22 18:25 07/17/22 18:36 Temperature 96.7 F L Pulse Rate 95 Respiratory Rate 16 Blood Pressure 150/116 H Pulse Oximetry 96 Oxygen Delivery Nasal Cannula Nasal Cannula Oxygen Flow Rate 5 5 Exam Const: General: well developed, in distress moderate, lethargic,
--- NOTE | 2022-07-17 19:56 | ED.SOB ---
HPI - SOB/Dyspnea General Chief Complaint: Shortness of Breath/Dyspnea Stated Complaint: DIFFICULTY IN BREATHING Time Seen by Provider: 07/17/22 19:04 History of Present Illness HPI Narrative: 86-year-old female who had been seen here 2 days ago with trouble breathing, had had pneumonia and started on antibiotics, presents back here because she has been having more difficulty breathing. Related Data Home Medications Medication Instructions Recorded Confirmed anastrozole 1 mg tablet 1 mg PO DAILY 05/04/20 05/04/20 carbidopa ER 50 mg-levodopa 200 mg 1 tablet PO DAILY 05/04/20 05/04/20 tablet,extended release carbidopa ER 50 mg-levodopa 200 mg 2 tablet PO HS 05/04/20 05/04/20 tablet,extended release lisinopril 40 mg tablet 40 mg PO DAILY 05/04/20 05/04/20 memantine ER 28 mg-donepezil 10 mg 1 cap PO DAILY 05/04/20 05/04/20 capsule sprinkle,ext.release 24 hr (Namzaric) omeprazole 20 mg capsule,delayed 20 mg PO DAILY 05/04/20 05/04/20 release rivaroxaban 20 mg tablet (Xarelto) 20 mg PO HS 05/04/20 05/04/20 sulfamethoxazole 800 1 tablet PO BID 05/04/20 05/04/20 mg-trimethoprim 160 mg tablet (Bactrim DS) trazodone 50 mg tablet 25 mg PO HS 05/04/20 05/04/20 Allergies Allergy/AdvReac Type Severity Reaction Status Date / Time aspirin Allergy Unknown Unknown Verified 07/17/22 19:49 caffeine Allergy Unknown Unknown Verified 07/17/22 19:49 codeine Allergy Unknown Unknown Verified 07/17/22 19:49 propoxyphene Allergy Unknown Unknown Verified 07/17/22 19:49 Review of Systems Review of Systems: ROS unobtainable: Yes unobtainable due to medical condition PMFSH Past Medical History Medical History Atrial fibrillation Breast cancer Chronic GERD Congestive heart failure Coronary artery disease Current use of snf anticoagulation Dementia Dyslipidemia Fracture of left hip requiring operative repair History of CVA (cerebrovascular accident) History of DVT (deep vein thrombosis) History of pulmonary embolism Hypertension Intellectual disability Major depression Parkinsonism Surgical History Surgical History History of right mastectomy Family History Family History Other Family history unknown Social History Social History Social History: Surrogate decision maker: Diamond Rivera. Code status: Do not resuscitate, comfort focus treatment. Smoking status: Unknown if ever smoked Alcohol intake: unknown Substance use: unknown Additional living arrangements comments: Resident of [facility]. Spiritual care concerns: No Exam Narrative: EXAMINATION OF ORGAN SYSTEMS/BODY AREAS: Constitutional: Vital signs per nursing GENERAL: Appears to be in respiratory distress HEAD: Normal with no signs of head trauma. EYES: Bilateral eye discharge ENT: Hearing grossly intact LUNGS: Labored respirations with accessory muscle use, diminished breath sounds, wheezing HEART: Tachycardic ABD: Soft EXT: Normal range of motion SKIN: [No rashes or lesions.] NEURO: [Alert. Nonverbal at baseline.] PSYCH: Normal affect Course Vital Signs Vital signs: Vital Signs Temperature 96.7 F L 07/17/22 18:25 Pulse Rate 95 07/17/22 18:25 Respiratory Rate 16 07/17/22 18:25 Blood Pressure 150/116 H 07/17/22 18:25 Oxygen Delivery Nasal Cannula 07/17/22 18:25 Oxygen Flow Rate 5 07/17/22 18:25 Temperature 96.7 F L 07/17/22 18:25 Pulse Rate 149 H 07/18/22 00:15 Respiratory Rate 17 07/18/22 00:15 Blood Pressure 125/76 07/17/22 23:31 Pulse Oximetry 95 07/18/22 00:15 Oxygen Delivery High Flow Therapy with Nasal Cannula 07/17/22 21:25 Oxygen Flow Rate 50 07/17/22 21:25 Fraction of Inspired Oxygen 50 07/17/22 21:25 MDM - SOB/Dyspnea MDM Narrative Medical decisio
[2022-07-17 21:04] LABS: Lactic Acid Reflex 1.5 mmol/L (0.7-2.0)
[2022-07-17] MEDS: LACTATED RINGERS 1,000 ML 250 ML IV CONT (23:13)
[2022-07-18] VITALS (26 sets, daily range): BP systolic 126–148; BP diastolic 62–91; PULSE 52–154; RESP 10–28; TEMP 36.2–36.8; O2SAT 78–97; BMI 37.0
--- NOTE | 2022-07-18 | ECHO_ITS ---
Patient Info Name: Marva Otoole Age: 86 years : 1935 Gender: Female Ht: 63 in Wt: 208 lbs BSA: 2.09 m2 BP: 142 / 91 mmHg Heart Rhythm: Atrial Fibrillation, Tachycardia Technical Quality: Poor Exam Date: 07/18/2022 2:09 PM Exam Location: [facility] Patient Status: Inpatient Admit Date: 07/17/2022 Staff Ordering Physician: Tito Munoz Food Editor: Marija Guerra RDCS Attending Provider: Panfilo Sepulveda MD Referring Physician: Alexander BARNES; Exam Type: CA echo dop color flow w con Study Info Indications R60.9 - Edema, unspecified R06.02 - Shortness of breath Complete two-dimensional, color flow and Doppler transthoracic echocardiogram is performed with contrast to opacify the left ventricle and to improve the deliniation of the left ventricle endocardial borders. Contrast/Agitated Saline Contrast/Ag. Saline: Definity Amount: 2.00 ml Administered By: Marija Guerra [facility] Existing IV Access: Yes IV Access Condition: patent with no signs of infiltration Reason for Poor Study: poor echocardiographic windows Summary 1. Left ventricular systolic function is normal, estimated at 55-60%. 2. Right ventricular chamber dimension is mildly enlarged. 3. Left atrial chamber dimension is moderately enlarged. 4. Right atrial chamber dimension is mildly enlarged. 5. There is moderate tricuspid valve regurgitation. 6. Dilated inferior vena cava with <50% collapse upon inspiration consistent with elevated right atrial pressure, 15 mmHg. 7. There is moderate anterior pericardial effusion. No echocardiographic evidence of tamponade. Left Ventricle Left ventricular chamber dimension is normal. Left ventricular systolic function is normal, estimated at 55-60%. There is no increased left ventricular wall thickness. Right Ventricle Right ventricular chamber dimension is mildly enlarged. Left Atria Left atrial chamber dimension is moderately enlarged. Right Atria Right atrial chamber dimension is mildly enlarged. Atrial Septum Intact interatrial septum visualized by color flow imaging. Aortic Valve The aortic valve is not well visualized. There is no aortic valve stenosis. There is no aortic valve regurgitation. Pulmonic Valve The pulmonic valve is not well visualized. Mitral Valve The mitral valve has thickened leaflets. There is trace mitral valve regurgitation. The mitral valve annulus is moderately calcified. Tricuspid Valve There is moderate tricuspid valve regurgitation. Pericardium/Pleural There is moderate anterior pericardial effusion. No echocardiographic evidence of tamponade. Inferior Vena Cava Dilated inferior vena cava with <50% collapse upon inspiration consistent with elevated right atrial pressure, 15 mmHg. Aorta The aortic root size at the sinus of Valsalva is normal. Left Ventricular Outflow Tract Name Value Normal LVOT 2D LVOT Diameter 2.00 cm LVOT Doppler LVOT Peak Gradient 6 mmHg LVOT Mean Gradient 4 mmHg LVOT VTI
[2022-07-18] MEDS: DIGOXIN INJ 250 MCG/ML 2 ML AMP (*BKC) 125 MCG IV PUSH (00:11)
--- NOTE | 2022-07-18 00:58 | ADMGEN ---
This patient, Marva Otoole, was admitted to 2 Medical Room 248-. Patient/family oriented to hospital policies and general routines including ID bracelet, bed and alarms, visiting hours, pain management, procedures, bathroom and other care routines, personal items, smoking policy, room service/diet, and visiting hours. Information on how to activate the Rapid Response Team has been discussed. Patient/Family are encouraged to report perceived risks to care and to ask questions if they do not understand what they are told or what they should do.
--- NOTE | 2022-07-18 07:30 | P.PNIM_ITS ---
Progress Note: A&P Assessment and Plan (1) Sepsis: Code(s): A41.9 - Sepsis, unspecified organism Status: Acute Assessment and Plan: * Patient meets SIRS criteria with tachycardia, tachypnea, hypothermia, source of infections, with slight hypotension upon arrival * Source of infections appears to be Pneumonia * LR x 2 L given * WBC seem to be stable * Continue to trend labs * IV antibiotics cefepime and vanco * Sputum culture ordered * blood culture ordered * Urine culture ordered * Continue with current treatment (2) Respiratory failure with hypoxia: Code(s): J96.91 - Respiratory failure, unspecified with hypoxia Status: Acute Assessment and Plan: * Currently on high-flow nasal cannula * ABG appears to be stable * Titrate oxygen to maintain saturations >90% * neb treatments * Converted patient to 2-3LNC, saturations maintaining in the low 90s (3) Pneumonia: Code(s): J18.9 - Pneumonia, unspecified organism Status: Acute Assessment and Plan: * Chest xray noted worsening consolidation * Cultures in progress * Give ceftriaxone in the ED, switch to cefepime and vanco * MRSA swab * Neb treatments * Sputum culture ordered * Supportive care (4) Acute metabolic encephalopathy: Code(s): G93.41 - Metabolic encephalopathy Status: Acute Assessment and Plan: * Reported that patient was obtunded upon arrival * Seems to be resolved at this time * Able to answer some questions * Probably related to the infection * continue treatment (5) Atrial fibrillation: Code(s): I48.91 - Unspecified atrial fibrillation Status: Acute Assessment and Plan: * Tele monitor shows afib RVR * Continue tele monitor * HR sustaining in the 140-160s * IV metoprolol given x 2, Cardizem dosing changed * Cardiology consulted thank you for your help * Restarted home meds * trend HR (6) Chronic GERD: Code(s): K21.9 - Gastro-esophageal reflux disease without esophagitis Status: Acute Assessment and Plan: * Protonix IV Q12H for now (7) Dementia 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 behavioral disturbance: Code(s): F02.80 - Dementia in other diseases classified elsewhere, unspecified severity, without behavioral disturbance, psychotic disturbance, mood disturbance, and anx iety Status: Acute Assessment and Plan: * Continue home meds (8) Parkinsonism: Code(s): G20 - Parkinson's disease Status: Acute Assessment and Plan: * Continue home meds Subjective Date/time seen: 07/18/22 07:30 Interval history: 07/18/22729 Patient was lying in bed. Patient appeared to be comfortable. Patient was talking to me and did state that she was feeling okay. She denied any pain including chest pain. However patient is unreliable with few of systems. Patient was able to eat ice cream and was responsive. Able to change patient to a 3 L nasal cannula. Heart rate is still a challenge with maintaining in the 140s. Consult cardiology for further recommendations. Urinary catheter was inserted with output of roughly 600. Two fluid boluses also given. 07/17
--- NOTE | 2022-07-18 07:30 | PM.IMPN ---
Progress Note: A&P Assessment and Plan (1) Sepsis: Code(s): A41.9 - Sepsis, unspecified organism Status: Acute Assessment and Plan: Patient meets SIRS criteria with tachycardia, tachypnea, hypothermia, source of infections, with slight hypotension upon arrival Source of infections appears to be Pneumonia LR x 2 L given WBC seem to be stable Continue to trend labs IV antibiotics cefepime and vanco Sputum culture ordered blood culture ordered Urine culture ordered Continue with current treatment (2) Respiratory failure with hypoxia: Code(s): J96.91 - Respiratory failure, unspecified with hypoxia Status: Acute Assessment and Plan: Currently on high-flow nasal cannula ABG appears to be stable Titrate oxygen to maintain saturations >90% neb treatments Converted patient to 2-3LNC, saturations maintaining in the low 90s (3) Pneumonia: Code(s): J18.9 - Pneumonia, unspecified organism Status: Acute Assessment and Plan: Chest xray noted worsening consolidation Cultures in progress Give ceftriaxone in the ED, switch to cefepime and vanco MRSA swab Neb treatments Sputum culture ordered Supportive care (4) Acute metabolic encephalopathy: Code(s): G93.41 - Metabolic encephalopathy Status: Acute Assessment and Plan: Reported that patient was obtunded upon arrival Seems to be resolved at this time Able to answer some questions Probably related to the infection continue treatment (5) Atrial fibrillation: Code(s): I48.91 - Unspecified atrial fibrillation Status: Acute Assessment and Plan: Tele monitor shows afib RVR Continue tele monitor HR sustaining in the 140-160s IV metoprolol given x 2, Cardizem dosing changed Cardiology consulted thank you for your help Restarted home meds trend HR (6) Chronic GERD: Code(s): K21.9 - Gastro-esophageal reflux disease without esophagitis Status: Acute Assessment and Plan: Protonix IV Q12H for now (7) Dementia 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 behavioral disturbance: Code(s): F02.80 - Dementia in other diseases classified elsewhere, unspecified severity, without behavioral disturbance, psychotic disturbance, mood disturbance, and anxiety Status: Acute Assessment and Plan: Continue home meds (8) Parkinsonism: Code(s): G20 - Parkinson's disease Status: Acute Assessment and Plan: Continue home meds Subjective Date/time seen: 07/18/22 07:30 Interval history: 07/18/22 0730 Patient was lying in bed. Patient appeared to be comfortable. Patient was talking to me and did state that she was feeling okay. She denied any pain including chest pain. However patient is unreliable with few of systems. Patient was able to eat ice cream and was responsive. Able to change patient to a 3 L nasal cannula. Heart rate is still a challenge with maintaining in the 140s. Consult cardiology for further recommendations. Urinary catheter was inserted with output of roughly 600. Two fluid boluses also given. 07/17/22? 19:56 This is an 86-year-old female [facility] resident past medical history significant for dysphagia, dementia, atrial fibrillation, rate controlled, anticoagulated, breast cancer, GERD, Parkinson's disease, was brought for evaluation due to shortness of breath, desaturation, patient had been seen couple of days before and sent back on oral antibiotics.? Patient is at baseline nonverbal currently at the time of my admit my visit patient is obtunded, she is on supplemental oxygen requiring high-flow by nasal cannula Airvo.? A chest x-ray repeated showed worsening of lung consolidation.? Patient is been admitted for further evaluation management and treatment.
[2022-07-18] MEDS: IPRATROPIUM BR 0.02% INH SOLN 0.5 MG/2.5 ML VIAL INHALATION ×4 (09:24→20:50)
[2022-07-18] MEDS: ALBUTEROL SULFATE NEB 2.5 MG/3 ML INH 1.25 MG INHALATION ×3 (09:24→16:49)
[2022-07-18] MEDS: LACTATED RINGERS 1,000 ML 999 ML IV CONT ×2 (09:48→11:33)
[2022-07-18] MEDS: METOPROLOL TARTRATE INJ 5 MG/5 ML VIAL IV PUSH ×2 (09:48→11:34)
[2022-07-18] MEDS: lisinopriL 20 MG TABLET 40 MG PO (09:54)
[2022-07-18] MEDS: dilTIAZem HCL CD 180 MG CAP.ER.24H PO (09:54)
[2022-07-18] MEDS: ANASTROZOLE (*CHEMO) 1 MG TABLET PO (10:12)
[2022-07-18] MEDS: MEMANTINE HCL XR 28 MG CAP PO (10:12)
[2022-07-18] MEDS: DONEPEZIL HCL 10 MG TABLET PO (10:12)
[2022-07-18] MEDS: CARBIDOPA/LEVODOPA 25/100 MG CR TABLET 1 TABLET PO (10:12)
[2022-07-18] MEDS: ATORVASTATIN 20 MG TABLET PO (10:12)
[2022-07-18] MEDS: MAGNESIUM OXIDE 400 MG TABLET PO (10:12)
[2022-07-18] MEDS: PANTOPRAZOLE SODIUM IV 40 MG VIAL IV PUSH ×2 (10:14→21:18)
[2022-07-18] MEDS: FUROSEMIDE INJ 40 MG/4 ML VIAL IV PUSH (10:35)
[2022-07-18 10:56] LABS: Add Urine Microscopic? YES; Appearance Urine Clear (Clear); Bilirubin Urine Negative (Negative); Blood Urine 2+ (Negative); Color Urine Yellow (Yellow); Glucose Urine UA Negative (Negative); Ketones Urine Negative (Negative); Leukocyte Esterase Ur Trace LEU/UL (Negative); Nitrate Urine Negative (Negative); Protein Urine Trace mg/dL (Negative); Specific Grav Ur >= 1.030 (1.001-1.035); Urobilinogen Urine 0.2 mg/dL (<2.0)
[2022-07-18 11:03] LABS: Mucus Urine Rare /lpf; RBC Urine >75 /hpf (0-2); WBC Urine 31-50 /hpf
[2022-07-18 13:19] LABS: Basophils Percent Auto 0.1 % (0.2-1.2); Hematocrit 42.5 % (37.0-47.0); Hemoglobin 12.8 g/dL (12.0-15.0); Immature Granulocyte Absolute 0.05 K/mm3 (0.00-0.031); Immature Granulocyte Percent A 0.4 % (0-0.5); Lymphocytes Absolute Auto 0.58 K/mm3 (0.9-3.2); Lymphocytes Percent Auto 4.4 % (18.3-44.2); Mean Corpuscular HGB Conc 30.1 g/dl (32-36); Mean Corpuscular Hemoglobin 28.7 pg (26-34); Mean Corpuscular Volume 95.3 fl (80-100); Mean Platelet Volume 9.1 fl (7.4-10.4); Monocytes Absolute Auto 0.9 K/mm3 (0.1-0.6); Monocytes Percent Auto 7.1 % (2.6-8.5); Neutrophils Absolute Auto 11.6 K/mm3 (1.3-6.7); Nucleated Red Blood Cells Perc 0.2 % (0.0-0.2); Platelet Count Result 215 k/mm3 (150-375); Red Blood Count 4.46 M/mm3 (4.2-5.4); Red Cell Distribution Width 13.7 % (11.5-14.5); White Blood Count 13.2 K/mm3 (4.5-10.0)
[2022-07-18 13:31] LABS: Alanine Aminotransferase 28 U/L (6-35); Albumin Level 3.6 g/dL (3.5-5.1); Alkaline Phosphatase 104 U/L (38-126); Anion Gap 7 mmol/L (8-16); Aspartate Amino Transferase 113 U/L (14-36); Bilirubin,Total 0.5 mg/dL (0.2-1.3); Blood Urea Nitrogen 27 mg/dL (7-17); Calcium 8.5 mg/dL (8.4-10.2); Carbon Dioxide 35 mmol/L (22-30); Chloride 96 mmol/L (98-107); Estimated CRCL calculation 63 ml/min; Estimated Glomerular Filt Rate > 60; Glucose 226 mg/dL (65-110); Potassium 4.5 mmol/L (3.4-5.0); Sodium 138 mmol/L (137-145)
[2022-07-18] MEDS: PERFLUTREN LIPID MICROSPHERES 1.5 ML VIAL DILUTED TO 10 ML TOTAL VOLUME IV PUSH (14:05)
--- NOTE | 2022-07-18 15:47 | PM.CNCAR ---
Assessment and Plan Assessment and plan (1) Atrial fibrillation with rapid ventricular response: Code(s): I48.91 - Unspecified atrial fibrillation Status: Acute Plan Thus far, has been given IV Dilt pushes, IV Digoxin x 1, IV Metoprolol pushes, and PO Dilt 60 Q6H and remains in RVR with HR in the 140s-160s. Will start Amiodarone drip. Patient will need to be transferred to the IMU. Discussed with Dr. Munoz. Continue Xarelto for anticoagulation. History of Present Illness History of Present Illness Consult date/time: 07/18/22 15:48 Requesting physician: Tito Munoz APN-C Consult reason: atrial fibrillation Reason For Visit: PNA Narrative: We are being consulted for atrial fibrillation with RVR. This is an 86-year-old female who is a [facility] with a history of dementia, dysphagia, history of atrial fibrillation, breast cancer, GERD, Parkinson's disease who was brought for evaluation of shortness of breath. She is being treated for pneumonia and sepsis. Went into AFIB with RVR. Difficult to obtain any history from the patient. She does say yes when her name is called and answers yes when she can feel her heart racing fast. Review of Systems Review of Systems: ROS unobtainable: Yes unobtainable due to mental status PMFSH Past Medical History Medical History Atrial fibrillation Breast cancer Chronic GERD Congestive heart failure Coronary artery disease Current use of terminal supervisor anticoagulation Dementia Dyslipidemia Fracture of left hip requiring operative repair History of CVA (cerebrovascular accident) History of DVT (deep vein thrombosis) History of pulmonary embolism Hypertension Intellectual disability Major depression Parkinsonism Surgical History Surgical History History of right mastectomy Family History Family History Other Family history unknown Social History Social History Social History: Surrogate decision maker: Diamond Rivera. Code status: Do not resuscitate, comfort focus treatment. Smoking status: Unknown if ever smoked Alcohol intake: unknown Substance use: unknown Additional living arrangements comments: Resident of [facility]. Spiritual care concerns: No Meds Home Medications and Allergies Home Medications Medication Instructions Recorded Confirmed Type anastrozole 1 mg tablet 1 mg PO DAILY 05/04/20 07/18/22 History carbidopa ER 50 mg-levodopa 200 mg 1 tablet PO DAILY 05/04/20 07/18/22 History tablet,extended release carbidopa ER 50 mg-levodopa 200 mg 2 tablet PO HS 05/04/20 07/18/22 History tablet,extended release lisinopril 40 mg tablet 40 mg PO DAILY 05/04/20 07/18/22 History memantine ER 28 mg-donepezil 10 mg 1 cap PO DAILY 05/04/20 07/18/22 History capsule sprinkle,ext.release 24 hr (Namzaric) omeprazole 20 mg capsule,delayed 20 mg PO DAILY 05/04/20 07/18/22 History release rivaroxaban 20 mg tablet (Xarelto) 20 mg PO HS 05/04/20 07/18/22 History atorvastatin 20 mg tablet 20 mg PO DAILY #30 tabs 05/08/20 07/18/22 Rx diltiazem HCl 180 mg 180 mg PO QAM #30 caps 05/08/20 07/18/22 Rx capsule,extended release 24 hr, controlled magnesium oxide 400 mg (241.3 mg 400 mg PO QAM #30 tabs 05/08/20 07/18/22 Rx magnesium) tablet Lactobacillus acidophilus 10 mg PO BID 07/18/22 07/18/22 History (Acidophilus capsule) amoxicillin 875 mg-potassium 1 tablet PO BID 07/18/22 07/18/22 History clavulanate 125 mg tablet Allergies Allergy/AdvReac Type Severity Reaction Status Date / Time aspirin Allergy Unknown Unknown Verified 07/17/22 19:49 caffeine Allergy Unknown Unknown Verified 07/17/22 19:49 codeine Allergy Unknown Unknown Verified 07/17/22 19:49 propoxyphene Allergy Unknown Unknown Verified
[2022-07-18] MEDS: dilTIAZem HCL 60 MG TABLET PO (17:18)
[2022-07-18] MEDS: RIVAROXABAN 20 MG TABLET PO (17:18)
[2022-07-18] MEDS: AMIODARONE 360 MG/D5W 200 ML 360 MG/200 ML BAG 33.33 MG IV CONT (18:18)
--- NOTE | 2022-07-18 18:35 | PC.NURSE ---
This patient, Marva Otoole, was received from [ [phone]] on 07/18/22 at 1815. Patient/family oriented to unit policies and routines
[2022-07-18 22:09] LABS: Alveolar/Arterial O2 Gradient 197.5 mmHg; Base Excess ABG 13.4 mEq/l (+/-2.0); Carboxyhemoglobin 0.7 % THb (0-2.0); Fractional Inspired Oxygen 44 %; HCO3 ABG 37.8 mEq/l (22.0-26.0); Methemoglobin ABG 0.2 %THb (0-1.5); Oxygen Content ABG 17.3 %vol (16.0-22.0); Oxygen Saturation ABG 94.1 % (95.0-100.0); Oxyhemoglobin 92.4 % THb (90.0-100.0); PCO2 ABG 46.5 mmHg (35.0-45.0); PO2 ABG 63.2 mmHg (80.0-100.0); PO2 FiO2 Ratio Arterial Blood 1.44 %; Reduced Hemoglobin 6.7 %THb (0-5.0); Total Hemoglobin 13.3 g/dL (12.0-18.0)
[2022-07-18 22:10] LABS: pH ABG 7.528 (7.350-7.450)
[2022-07-18 22:11] LABS: Device NASAL CANNULA; Modified Allen's Test Pass; Site Drawn RIGHT RADIAL
[2022-07-19] VITALS (32 sets, daily range): BP systolic 101–155; BP diastolic 38–97; PULSE 68–124; RESP 16–28; TEMP 36.2–36.6; O2SAT 91–99; BMI 37.0
[2022-07-19] MEDS: AMIODARONE 360 MG/D5W 200 ML 360 MG/200 ML BAG 16.67 MG IV CONT (00:02)
[2022-07-19] MEDS: IPRATROPIUM BR 0.02% INH SOLN 0.5 MG/2.5 ML VIAL INHALATION ×6 (01:06→21:16)
[2022-07-19 04:59] LABS: Basophils Percent Auto 0.1 % (0.2-1.2); Hematocrit 38.4 % (37.0-47.0); Hemoglobin 11.9 g/dL (12.0-15.0); Immature Granulocyte Absolute 0.04 K/mm3 (0.00-0.031); Immature Granulocyte Percent A 0.3 % (0-0.5); Lymphocytes Absolute Auto 1.44 K/mm3 (0.9-3.2); Lymphocytes Percent Auto 10.4 % (18.3-44.2); Mean Corpuscular Hemoglobin 28.1 pg (26-34); Mean Corpuscular Volume 90.6 fl (80-100); Mean Platelet Volume 9.2 fl (7.4-10.4); Monocytes Absolute Auto 1.9 K/mm3 (0.1-0.6); Monocytes Percent Auto 13.3 % (2.6-8.5); Neutrophils Absolute Auto 10.5 K/mm3 (1.3-6.7); Neutrophils Percent Auto 75.9 % (45.5-73.1); Nucleated Red Blood Cells Perc 0.1 % (0.0-0.2); Platelet Count Result 207 k/mm3 (150-375); Red Blood Count 4.24 M/mm3 (4.2-5.4); Red Cell Distribution Width 13.5 % (11.5-14.5); White Blood Count 13.9 K/mm3 (4.5-10.0)
[2022-07-19 05:11] LABS: Alanine Aminotransferase 66 U/L (6-35); Albumin Level 3.1 g/dL (3.5-5.1); Alkaline Phosphatase 89 U/L (38-126); Aspartate Amino Transferase 75 U/L (14-36); Bilirubin,Total 0.2 mg/dL (0.2-1.3); Blood Urea Nitrogen 21 mg/dL (7-17); Calcium 8.3 mg/dL (8.4-10.2); Carbon Dioxide > 40 mmol/L (22-30); Chloride 93 mmol/L (98-107); Estimated CRCL calculation 63 ml/min; Estimated Glomerular Filt Rate > 60; Glucose 131 mg/dL (65-110); Magnesium 1.9 mg/dL (1.6-2.3); Potassium 3.9 mmol/L (3.4-5.0); Sodium 135 mmol/L (137-145)
--- NOTE | 2022-07-19 09:00 | PM.IMPN ---
Progress Note: A&P Assessment and Plan (1) Sepsis: Code(s): A41.9 - Sepsis, unspecified organism Status: Acute Assessment and Plan: Patient meets SIRS criteria with tachycardia, tachypnea, hypothermia, source of infections, with slight hypotension upon arrival Source of infections appears to be Pneumonia LR x 2 L given WBC trending down Continue to trend labs IV antibiotics cefepime and vanco Sputum culture ordered blood culture NGTD Urine culture no growth Continue with current treatment (2) Respiratory failure with hypoxia: Code(s): J96.91 - Respiratory failure, unspecified with hypoxia Status: Acute Assessment and Plan: Currently 2LNC sating low 90s ABG appears to be stable Titrate oxygen to maintain saturations >90% neb treatments Converted patient to 2-3LNC, saturations maintaining in the low 90s (3) Pneumonia: Code(s): J18.9 - Pneumonia, unspecified organism Status: Acute Assessment and Plan: Chest xray noted worsening consolidation Cultures in progress Give ceftriaxone in the ED, switch to cefepime and vanco MRSA swab still awaiting results Neb treatments Sputum culture ordered Supportive care (4) Acute metabolic encephalopathy: Code(s): G93.41 - Metabolic encephalopathy Status: Acute Assessment and Plan: Reported that patient was obtunded upon arrival Seems to be resolved at this time Able to answer some questions Probably related to the infection continue treatment (5) Atrial fibrillation: Code(s): I48.91 - Unspecified atrial fibrillation Status: Acute Assessment and Plan: Tele monitor shows afib RVR Continue tele monitor HR better in the 110s Amiodarone drip per cardiology, transitioned to metoprolol Cardiology consulted thank you for your help Restarted home meds trend HR (6) Chronic GERD: Code(s): K21.9 - Gastro-esophageal reflux disease without esophagitis Status: Acute Assessment and Plan: Protonix IV Q12H for now (7) Dementia 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 behavioral disturbance: Code(s): F02.80 - Dementia in other diseases classified elsewhere, unspecified severity, without behavioral disturbance, psychotic disturbance, mood disturbance, and anxiety Status: Acute Assessment and Plan: Continue home meds (8) Parkinsonism: Code(s): G20 - Parkinson's disease Status: Acute Assessment and Plan: Continue home meds (9) Heart failure: Code(s): I50.9 - Heart failure, unspecified Status: Acute Assessment and Plan: acute on chronic diastolic heart failure with exacerbation BNP 2710 Lasix given intermittent trend urine output daily weights echo Time Spent With Patient Time with patient: Greater than 35 minutes Subjective Date/time seen: 07/19/22899 Interval history: 07/19/22899 Patient arrouses very easily. Heart rate still in the 110s. Patient is on amiodarone drip. Review of systems was unable to be obtained due to patient's mental status. Was able to titrate oxygen down to 2 L nasal cannula with the nurse present. Patient denies any complaints when asked. Currently appears comfortable 07/18/22 07 Patient was lying in bed. Patient appeared to be comfortable. Patient was talking to me and did state that she was feeling okay. She denied any pain including chest pain. However patient is unreliable with few of systems. Patient was able to eat ice cream and was responsive. Able to change patient to a 3 L nasal cannula. Heart rate is still a challenge with maintaining in the 140s. Consult cardiology for further recommendations. Urinary catheter was inserted with output of roughly 600. Two fluid boluses also giv
--- NOTE | 2022-07-19 09:00 | P.PNIM_ITS ---
Progress Note: A&P Assessment and Plan (1) Sepsis: Code(s): A41.9 - Sepsis, unspecified organism Status: Acute Assessment and Plan: * Patient meets SIRS criteria with tachycardia, tachypnea, hypothermia, source of infections, with slight hypotension upon arrival * Source of infections appears to be Pneumonia * LR x 2 L given * WBC trending down * Continue to trend labs * IV antibiotics cefepime and vanco * Sputum culture ordered * blood culture NGTD * Urine culture no growth * Continue with current treatment (2) Respiratory failure with hypoxia: Code(s): J96.91 - Respiratory failure, unspecified with hypoxia Status: Acute Assessment and Plan: * Currently 2LNC sating low 90s * ABG appears to be stable * Titrate oxygen to maintain saturations >90% * neb treatments * Converted patient to 2-3LNC, saturations maintaining in the low 90s (3) Pneumonia: Code(s): J18.9 - Pneumonia, unspecified organism Status: Acute Assessment and Plan: * Chest xray noted worsening consolidation * Cultures in progress * Give ceftriaxone in the ED, switch to cefepime and vanco * MRSA swab still awaiting results * Neb treatments * Sputum culture ordered * Supportive care (4) Acute metabolic encephalopathy: Code(s): G93.41 - Metabolic encephalopathy Status: Acute Assessment and Plan: * Reported that patient was obtunded upon arrival * Seems to be resolved at this time * Able to answer some questions * Probably related to the infection * continue treatment (5) Atrial fibrillation: Code(s): I48.91 - Unspecified atrial fibrillation Status: Acute Assessment and Plan: * Tele monitor shows afib RVR * Continue tele monitor * HR better in the 110s * Amiodarone drip per cardiology, transitioned to metoprolol * Cardiology consulted thank you for your help * Restarted home meds * trend HR (6) Chronic GERD: Code(s): K21.9 - Gastro-esophageal reflux disease without esophagitis Status: Acute Assessment and Plan: * Protonix IV Q12H for now (7) Dementia 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 behavioral disturbance: Code(s): F02.80 - Dementia in other diseases classified elsewhere, unspecified severity, without behavioral disturbance, psychotic disturbance, mood disturbance, and anxiety Status: Acute Assessment and Plan: * Continue home meds (8) Parkinsonism: Code(s): G20 - Parkinson's disease Status: Acute Assessment and Plan: * Continue home meds (9) Heart failure: Code(s): I50.9 - Heart failure, unspecified Status: Acute Assessment and Plan: * acute on chronic diastolic heart failure with exacerbation * BNP 2710 * Lasix given intermittent * trend urine output * daily weights * echo Time Spent With Patient Time with patient: Greater than 35 minutes Subjective Date/time seen: 07/19/22899 Interval history: 07/19/22899 Patient arrouses very easily. Heart rate still in the 110s. Patient is on amiodarone drip. Review of systems was unable to be obtained due to patie
[2022-07-19] MEDS: PANTOPRAZOLE SODIUM IV 40 MG VIAL IV PUSH ×2 (09:20→20:27)
[2022-07-19] MEDS: MEMANTINE HCL XR 28 MG CAP PO (09:20)
[2022-07-19] MEDS: lisinopriL 20 MG TABLET 40 MG PO (09:21)
[2022-07-19] MEDS: ATORVASTATIN 20 MG TABLET PO (09:21)
[2022-07-19] MEDS: MAGNESIUM OXIDE 400 MG TABLET PO (09:21)
[2022-07-19] MEDS: CARBIDOPA/LEVODOPA 25/100 MG CR TABLET 1 TABLET PO (09:21)
[2022-07-19] MEDS: DONEPEZIL HCL 10 MG TABLET PO (09:21)
[2022-07-19] MEDS: dilTIAZem HCL 60 MG TABLET PO ×4 (09:22→23:59)
[2022-07-19] MEDS: ANASTROZOLE (*CHEMO) 1 MG TABLET PO (09:22)
--- NOTE | 2022-07-19 09:35 | PM.PNCARD ---
Progress Note: A&P Assessment and Plan (1) Atrial fibrillation with rapid ventricular response: Code(s): I48.91 - Unspecified atrial fibrillation Status: Acute Plan This is an 86-year-old woman with chronic atrial fibrillation heart rate control is more problematic with left lower lobe pneumonia and hypoxemia. I believe I would recommend simpler medication regimen for rate control rather than intravenous amiodarone as there is no plan to attempt cardioversion in this patient who is been in atrial fib chronically. I am going to transition her from amiodarone to metoprolol and for now continue her on the diltiazem as well. With respect to her atrial fib she is not otherwise hemodynamically aberrant. Systemic anticoagulation is in place with Caridad Fish MD [facility] Subjective Date/time seen: Date of service: 07/19/22 09:35 Interval history: Follow-up visit in this 86-year-old woman with chronic atrial fibrillation admitted to the hospital with left lower lobe pneumonia. In this setting AFib has been problematic in terms of rate control. She has been started on intravenous amiodarone and her diltiazem has been adjusted to short-acting diltiazem. She persists in AFib heart rate does not seem to be any better with the amiodarone on board. Nursing staff does state that they are able to give the patient p.o. medications if they are crossed with applesauce etc.. Patient has no cardiovascular complaints otherwise this morning. She is oriented to self. Exam Const: General: comfortable and no acute distress Other: Obese elderly woman appears to be in no obvious distress is oriented to self alone. HENMT: Mouth: Yes moist mucous membranes Eyes: Sclera: sclerae normal Neck: Neck: supple and no JVD Resp: Effort & Inspection: normal respiratory effort Other: Left lower lung field rales Cardio: Rate: tachycardic Rhythm: abnormal rhythm irregularly irregular GI: GI Palp: Yes Soft to palpation Auscultation: normal bowel sounds Skin: General skin exam: normal color Neuro: Other: Alert and responsive not coherent Objective Data Vital Signs Vital Signs: Vital Signs - 24 hr 07/18/22 09:48 07/18/22 09:58 07/18/22 13:18 Temperature Pulse Rate 115 H 119 H 130 H Respiratory Rate 20 20 23 H Blood Pressure Pulse Oximetry Oxygen Delivery Oxygen Flow Rate 07/18/22 13:19 07/18/22 12:00 07/18/22 14:00 Temperature 36.8 C Pulse Rate 125 H 152 H 120 H Respiratory Rate 23 H 18 Blood Pressure 140/62 Pulse Oximetry 92 Oxygen Delivery Oxygen Flow Rate 07/18/22 16:49 07/18/22 16:57 07/18/22 17:22 Temperature Pulse Rate 133 H 141 H Respiratory Rate 22 H 22 H Blood Pressure Pulse Oximetry 88 L Oxygen Delivery Nasal Cannula Oxygen Flow Rate 3 07/18/22 18:18 07/18/22 18:35 07/18/22 18:37 Temperature Pulse Rate 128 H 132 H 132 H Respiratory Rate 22 H Blood Pressure 148/64 H Pulse Oximetry 88 L Oxygen Delivery Nasal Cannula Oxygen Flow Rate 5 07/18/22 16:00 07/18/22 20:00 07/18/22 20:50 Temperature 36.4 C Pulse Rate 154 H 107 H 102 H Respiratory Rate 20 23 H Blood Pressure 126/72 Pulse Oximetry 97 Oxygen Delivery Oxygen Flow Rate 07/18/22 21:05 07/18/22 20:00 07/18/22 20:00 Temperature Pulse Rate 111 H 103 H Respiratory Rate 25 H Blood Pressure Pulse Oximetry 93 Oxygen Delivery Nasal Cannula Oxygen Flow Rate 6 07/18/22 22:00 07/19/22 00:01 07/19/22 00:02 Temperature 36.4 C L Pulse Rate 113 H 115 H 111 H Respiratory Rate 28 H Blood Pressure 142/70 H Pulse Oximetry 94 Oxygen Delivery Oxygen Flow Rate 07/19/22 00:00 07/19/22 00:00 07/19/22 01:06 Temperature Pulse Rate 116 H 97 Respiratory Rate 22 H Blood Pressure Pulse Oximetry 98 Oxygen Delivery Nasal Cannula Oxygen Flow Rate 5 07/19/22 01:20 07/19/22 02:00 07/19/22 04:00 Temperature
--- NOTE | 2022-07-19 10:50 | PCSTNOTE ---
Please refer to the Modified Barium Swallow Evaluation in the EMR.
--- NOTE | 2022-07-19 10:51 | PCSTNOTE ---
Please refer to the Bedside Swallow Evaluation in the EMR. Recommend Modified Barium Swallow Study.
[2022-07-19] MEDS: METOPROLOL TARTRATE 50 MG TAB PO ×2 (12:04→20:27)
[2022-07-19] MEDS: FUROSEMIDE INJ 40 MG/4 ML VIAL IV PUSH (12:04)
--- NOTE | 2022-07-19 15:20 | PCSTNOTE ---
Please refer to the Modified Barium Swallow Evaluation in the EMR.
[2022-07-19] MEDS: RIVAROXABAN 20 MG TABLET PO (17:23)
[2022-07-19] MEDS: CARBIDOPA/LEVODOPA 25/100 MG CR TABLET 2 TABLET PO (20:27)
[2022-07-20] VITALS (29 sets, daily range): BP systolic 104–148; BP diastolic 43–77; PULSE 82–114; RESP 16–24; TEMP 35.7–36.9; O2SAT 93–99
[2022-07-20] MEDS: IPRATROPIUM BR 0.02% INH SOLN 0.5 MG/2.5 ML VIAL INHALATION ×6 (00:58→20:14)
[2022-07-20 04:59] LABS: Basophils Percent Auto 0.2 % (0.2-1.2); Eosinophils Absolute Auto 0.1 K/mm3 (0-0.3); Eosinophils Percent Auto 0.5 % (0-4.4); Hematocrit 39.7 % (37.0-47.0); Hemoglobin 12.3 g/dL (12.0-15.0); Immature Granulocyte Absolute 0.06 K/mm3 (0.00-0.031); Immature Granulocyte Percent A 0.5 % (0-0.5); Lymphocytes Percent Auto 16.1 % (18.3-44.2); Mean Corpuscular Volume 90.2 fl (80-100); Mean Platelet Volume 9.6 fl (7.4-10.4); Monocytes Absolute Auto 1.6 K/mm3 (0.1-0.6); Monocytes Percent Auto 12.7 % (2.6-8.5); Neutrophils Absolute Auto 8.7 K/mm3 (1.3-6.7); Platelet Count Result 200 k/mm3 (150-375); Red Cell Distribution Width 13.3 % (11.5-14.5); White Blood Count 12.4 K/mm3 (4.5-10.0)
[2022-07-20 05:11] LABS: Alanine Aminotransferase 17 U/L (6-35); Alkaline Phosphatase 86 U/L (38-126); Aspartate Amino Transferase 63 U/L (14-36); Bilirubin,Total 0.7 mg/dL (0.2-1.3); Blood Urea Nitrogen 16 mg/dL (7-17); Calcium 8.2 mg/dL (8.4-10.2); Carbon Dioxide > 40 mmol/L (22-30); Chloride 91 mmol/L (98-107); Estimated CRCL calculation 63 ml/min; Estimated Glomerular Filt Rate > 60; Glucose 85 mg/dL (65-110); Magnesium 1.9 mg/dL (1.6-2.3); Potassium 3.6 mmol/L (3.4-5.0); Sodium 131 mmol/L (137-145)
[2022-07-20] MEDS: dilTIAZem HCL 60 MG TABLET PO (06:12)
--- NOTE | 2022-07-20 07:53 | PC.NURSE ---
Upon morning assessment patient had o2 NC off and o2 sensor off. I put O2 NC canula on with 2L. Patient O2 sats less than 90%. Turned O2 nc UP TO 5L (pt home setting) Patient is O2 sat is 95%.
[2022-07-20] MEDS: CARBIDOPA/LEVODOPA 25/100 MG CR TABLET 1 TABLET PO (08:32)
[2022-07-20] MEDS: MAGNESIUM OXIDE 400 MG TABLET PO (08:32)
[2022-07-20] MEDS: DONEPEZIL HCL 10 MG TABLET PO (08:32)
[2022-07-20] MEDS: ANASTROZOLE (*CHEMO) 1 MG TABLET PO (08:32)
[2022-07-20] MEDS: lisinopriL 20 MG TABLET 40 MG PO (08:32)
[2022-07-20] MEDS: METOPROLOL TARTRATE 50 MG TAB PO ×2 (08:32→20:08)
[2022-07-20] MEDS: ATORVASTATIN 20 MG TABLET PO (08:32)
[2022-07-20] MEDS: MEMANTINE HCL XR 28 MG CAP PO (08:32)
[2022-07-20] MEDS: PANTOPRAZOLE SODIUM IV 40 MG VIAL IV PUSH ×2 (08:43→20:08)
--- NOTE | 2022-07-20 08:44 | PM.PNCARD ---
Progress Note: A&P Assessment and Plan (1) Atrial fibrillation: Code(s): I48.91 - Unspecified atrial fibrillation Status: Acute Plan 86-year-old lady with left lower lobe pneumonia and chronic atrial fibrillation. Heart rate control and anticoagulation are being provided. I will transition her diltiazem to long-acting diltiazem for convenience starting today. We will continue to follow telemetry while she is hospitalized. Alfonso Fish MD [facility] Subjective Date/time seen: Date of service: 07/20/22 08:44 Interval history: Follow-up visit in this 86-year-old woman with: Chronic atrial fibrillation with accelerated ventricular response in the setting of left lower lobe pneumonia. Heart rate control seems to be satisfactory this morning on combination of metoprolol and diltiazem. Patient is being fed her breakfast. She is awake and responsive but incoherent Exam Const: General: comfortable and no acute distress Other: Pleasant elderly lady obese being fed her breakfast in bed does not have any complaints but does not answer questions either HENMT: Mouth: Yes moist mucous membranes Eyes: Sclera: sclerae normal Neck: Neck: supple Resp: Effort & Inspection: normal respiratory effort Other: Few central rhonchi are noted Cardio: Rhythm: abnormal rhythm irregularly irregular GI: GI Palp: Yes Soft to palpation Auscultation: normal bowel sounds Skin: General skin exam: normal color Neuro: Other: Alert and oriented x3 Objective Data Vital Signs Vital Signs: Vital Signs - 24 hr 07/19/22 09:11 07/19/22 09:15 07/19/22 10:00 Temperature Pulse Rate 107 H 107 H 117 H Respiratory Rate 22 H Blood Pressure Pulse Oximetry 96 Oxygen Delivery Nasal Cannula Oxygen Flow Rate 3 Fraction of Inspired Oxygen 07/19/22 12:04 07/19/22 12:00 07/19/22 12:00 Temperature 36.6 C Pulse Rate 82 101 H 94 Respiratory Rate 24 H Blood Pressure 101/38 L Pulse Oximetry 91 Oxygen Delivery Oxygen Flow Rate Fraction of Inspired Oxygen 07/19/22 12:00 07/19/22 13:30 07/19/22 13:39 Temperature Pulse Rate 68 69 Respiratory Rate 18 18 Blood Pressure Pulse Oximetry 91 Oxygen Delivery Nasal Cannula Oxygen Flow Rate 2 Fraction of Inspired Oxygen 07/19/22 14:00 07/19/22 17:15 07/19/22 17:25 Temperature Pulse Rate 71 98 87 Respiratory Rate 18 18 Blood Pressure Pulse Oximetry Oxygen Delivery Oxygen Flow Rate Fraction of Inspired Oxygen 07/19/22 16:00 07/19/22 16:00 07/19/22 16:00 Temperature 36.2 C L Pulse Rate 94 88 Respiratory Rate 24 H Blood Pressure 139/89 Pulse Oximetry 95 95 Oxygen Delivery Nasal Cannula Oxygen Flow Rate 2 Fraction of Inspired Oxygen 07/19/22 18:00 07/19/22 20:00 07/19/22 20:27 Temperature 36.4 C L Pulse Rate 102 H 103 H 103 H Respiratory Rate 24 H Blood Pressure 129/61 Pulse Oximetry 93 Oxygen Delivery Oxygen Flow Rate Fraction of Inspired Oxygen 07/19/22 20:00 07/19/22 20:00 07/19/22 21:18 Temperature Pulse Rate 84 84 Respiratory Rate 24 H Blood Pressure Pulse Oximetry 93 93 Oxygen Delivery Nasal Cannula Nasal Cannula Oxygen Flow Rate 2 2 Fraction of Inspired Oxygen 45 07/19/22 21:16 07/19/22 22:00 07/20/22 00:00 Temperature 36.9 C Pulse Rate 84 84 87 Respiratory Rate 16 20 Blood Pressure 137/67 Pulse Oximetry 96 Oxygen Delivery Oxygen Flow Rate Fraction of Inspired Oxygen 07/20/22 00:00 07/20/22 00:00 07/20/22 01:00 Temperature Pulse Rate 84 84 85 Respiratory Rate 16 16 Blood Pressure Pulse Oximetry 93 Oxygen Delivery Nasal Cannula Oxygen Flow Rate 2 Fraction of Inspired Oxygen 45 07/19/22 21:26 07/20/22 02:00 07/20/22 04:00 Temperature Pulse Rate 83 85 85 Respiratory Rate 16 Blood Pressure Pulse Oximetry Oxygen Delivery Oxygen Flow Rate Fraction of Ins
--- NOTE | 2022-07-20 09:00 | PM.IMPN ---
Progress Note: A&P Assessment and Plan (1) Sepsis: Code(s): A41.9 - Sepsis, unspecified organism Status: Acute Assessment and Plan: Patient meets SIRS criteria with tachycardia, tachypnea, hypothermia, source of infections, with slight hypotension upon arrival Source of infections appears to be Pneumonia LR x 2 L given WBC trending down currently 12.4 Continue to trend labs IV antibiotics cefepime and vanco Sputum culture ordered blood culture NGTD Urine culture no growth Continue with current treatment (2) Respiratory failure with hypoxia: Code(s): J96.91 - Respiratory failure, unspecified with hypoxia Status: Acute Assessment and Plan: Currently 2LNC sating low 90s ABG appears to be stable Titrate oxygen to maintain saturations >90% neb treatments Converted patient to 2-3LNC, saturations maintaining in the low 90s (3) Pneumonia: Code(s): J18.9 - Pneumonia, unspecified organism Status: Acute Assessment and Plan: Chest xray noted worsening consolidation Cultures in progress Give ceftriaxone in the ED, switch to cefepime and vanco MRSA swab still awaiting results Neb treatments Sputum culture ordered Supportive care repeat chest xray 07/20/22 mild pulm edema, opacities in the lung bases, cardiomegaly (4) Acute metabolic encephalopathy: Code(s): G93.41 - Metabolic encephalopathy Status: Acute Assessment and Plan: Reported that patient was obtunded upon arrival Seems to be resolved at this time Able to answer some questions Probably related to the infection continue treatment Even better today (5) Atrial fibrillation: Code(s): I48.91 - Unspecified atrial fibrillation Status: Acute Assessment and Plan: Tele monitor shows afib RVR Continue tele monitor HR better in the 100-110s Amiodarone drip per cardiology, transitioned to metoprolol Cardiology consulted thank you for your help Restarted home meds trend HR (6) Chronic GERD: Code(s): K21.9 - Gastro-esophageal reflux disease without esophagitis Status: Acute Assessment and Plan: Protonix IV Q12H for now (7) Dementia 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 behavioral disturbance: Code(s): F02.80 - Dementia in other diseases classified elsewhere, unspecified severity, without behavioral disturbance, psychotic disturbance, mood disturbance, and anxiety Status: Acute Assessment and Plan: Continue home meds (8) Parkinsonism: Code(s): G20 - Parkinson's disease Status: Acute Assessment and Plan: Continue home meds (9) Heart failure: Code(s): I50.9 - Heart failure, unspecified Status: Acute Assessment and Plan: acute on chronic diastolic heart failure with exacerbation BNP 2710 Lasix given intermittent One dose of diamox given will start lasix 40mg IV BID at 1700 trend urine output daily weights echo EF 55-60% with some diastolic dysfunction Plan Ok to transfer to medical tele Time Spent With Patient Time with patient: Greater than 35 minutes Subjective Date/time seen: 07/20/22899 Interval history: 07/20/22899 patient is much more arousable today as she is very talkative. She denies any current issues. Oxygen is on 2 L. Patient's heart rate is between 100-110. She does seems to have some breathing difficulty. Oxygen seems to be stable along with other vital sign. She should be ok to transfer to med/tele. Complete review of systems unable to be obtained due to mental status and disease process. 07/19/22899 Patient arrouses very easily. Heart rate still in the 110s. Patient is on amiodarone drip. Review of systems was unable to be obtained due to patient's mental sta
--- NOTE | 2022-07-20 09:00 | P.PNIM_ITS ---
Progress Note: A&P Assessment and Plan (1) Sepsis: Code(s): A41.9 - Sepsis, unspecified organism Status: Acute Assessment and Plan: * Patient meets SIRS criteria with tachycardia, tachypnea, hypothermia, source of infections, with slight hypotension upon arrival * Source of infections appears to be Pneumonia * LR x 2 L given * WBC trending down currently 12.4 * Continue to trend labs * IV antibiotics cefepime and vanco * Sputum culture ordered * blood culture NGTD * Urine culture no growth * Continue with current treatment (2) Respiratory failure with hypoxia: Code(s): J96.91 - Respiratory failure, unspecified with hypoxia Status: Acute Assessment and Plan: * Currently 2LNC sating low 90s * ABG appears to be stable * Titrate oxygen to maintain saturations >90% * neb treatments * Converted patient to 2-3LNC, saturations maintaining in the low 90s (3) Pneumonia: Code(s): J18.9 - Pneumonia, unspecified organism Status: Acute Assessment and Plan: * Chest xray noted worsening consolidation * Cultures in progress * Give ceftriaxone in the ED, switch to cefepime and vanco * MRSA swab still awaiting results * Neb treatments * Sputum culture ordered * Supportive care * repeat chest xray 07/20/22 mild pulm edema, opacities in the lung bases, cardiomegaly (4) Acute metabolic encephalopathy: Code(s): G93.41 - Metabolic encephalopathy Status: Acute Assessment and Plan: * Reported that patient was obtunded upon arrival * Seems to be resolved at this time * Able to answer some questions * Probably related to the infection * continue treatment * Even better today (5) Atrial fibrillation: Code(s): I48.91 - Unspecified atrial fibrillation Status: Acute Assessment and Plan: * Tele monitor shows afib RVR * Continue tele monitor * HR better in the 100-110s * Amiodarone drip per cardiology, transitioned to metoprolol * Cardiology consulted thank you for your help * Restarted home meds * trend HR (6) Chronic GERD: Code(s): K21.9 - Gastro-esophageal reflux disease without esophagitis Status: Acute Assessment and Plan: * Protonix IV Q12H for now (7) Dementia 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 behavioral disturbance: Code(s): F02.80 - Dementia in other diseases classified elsewhere, unspecified severity, without behavioral disturbance, psychotic disturbance, mood disturbance, and anxiety Status: Acute Assessment and Plan: * Continue home meds (8) Parkinsonism: Code(s): G20 - Parkinson's disease Status: Acute Assessment and Plan: * Continue home meds (9) Heart failure: Code(s): I50.9 - Heart failure, unspecified Status: Acute Assessment and Plan: * acute on chronic diastolic heart failure with exacerbation * BNP 2710 * Lasix given intermittent * One dose of diamox given will start lasix 40mg IV BID at 1700 * trend urine output * daily weights * echo EF 55-60% with some diastolic dysfunction Plan Ok to transfer to medical tele
[2022-07-20] MEDS: acetaZOLAMIDE SODIUM FOR INJ 500 MG VIAL IV PUSH (10:46)
[2022-07-20] MEDS: WATER, STERILE FOR INJECTION 10 ML VIAL XX (10:53)
[2022-07-20 14:49] LABS: Vancomycin Trough 13.3 ug/mL (10.0-20.0)
--- NOTE | 2022-07-20 14:54 | PC.NURSE ---
Spoke with Pharmacy. Clarified which medications can and cannot be crushed. Pharmacy to put flag on medications. Diltiazem, memantine, carbidopa cannot be crushed.
--- NOTE | 2022-07-20 16:41 | PC.NURSE ---
Spoke with Diamond King (POA) Diamond asked a lot of questions, after she was given information regarding her aunts medical condition, Diamond requested we stop treatment and ask hospice to come in. Charge nurse Geovani Boyle spoke with Diamond and confirmed her request to move forward with Hospice. I called Yogi Munoz and made him aware of Diamonds request. Care coordination was called and I left a message for them. Care coordination has left for the day.
[2022-07-20] MEDS: RIVAROXABAN 20 MG TABLET PO (18:15)
[2022-07-20] MEDS: FUROSEMIDE INJ 40 MG/4 ML VIAL IV PUSH (18:15)
[2022-07-20] MEDS: CARBIDOPA/LEVODOPA 25/100 MG CR TABLET 2 TABLET PO (20:09)
[2022-07-21] VITALS (16 sets, daily range): BP systolic 95–132; BP diastolic 37–75; PULSE 68–101; RESP 18–28; TEMP 36.1–36.7; O2SAT 93–99
[2022-07-21] MEDS: IPRATROPIUM BR 0.02% INH SOLN 0.5 MG/2.5 ML VIAL INHALATION ×5 (00:14→20:00)
[2022-07-21 04:52] LABS: Basophils Percent Auto 0.2 % (0.2-1.2); Eosinophils Absolute Auto 0.1 K/mm3 (0-0.3); Eosinophils Percent Auto 0.9 % (0-4.4); Hematocrit 40.1 % (37.0-47.0); Hemoglobin 12.1 g/dL (12.0-15.0); Immature Granulocyte Absolute 0.03 K/mm3 (0.00-0.031); Immature Granulocyte Percent A 0.3 % (0-0.5); Lymphocytes Absolute Auto 1.55 K/mm3 (0.9-3.2); Lymphocytes Percent Auto 13.1 % (18.3-44.2); Mean Corpuscular HGB Conc 30.2 g/dl (32-36); Mean Corpuscular Hemoglobin 27.9 pg (26-34); Mean Corpuscular Volume 92.4 fl (80-100); Mean Platelet Volume 9.7 fl (7.4-10.4); Monocytes Absolute Auto 1.6 K/mm3 (0.1-0.6); Monocytes Percent Auto 13.6 % (2.6-8.5); Neutrophils Absolute Auto 8.5 K/mm3 (1.3-6.7); Neutrophils Percent Auto 71.9 % (45.5-73.1); Platelet Count Result 194 k/mm3 (150-375); Red Blood Count 4.34 M/mm3 (4.2-5.4); Red Cell Distribution Width 13.6 % (11.5-14.5); White Blood Count 11.8 K/mm3 (4.5-10.0)
[2022-07-21 05:05] LABS: Alanine Aminotransferase 11 U/L (6-35); Alkaline Phosphatase 73 U/L (38-126); Anion Gap 2 mmol/L (8-16); Aspartate Amino Transferase 45 U/L (14-36); Bilirubin,Total 0.4 mg/dL (0.2-1.3); Blood Urea Nitrogen 16 mg/dL (7-17); Calcium 7.9 mg/dL (8.4-10.2); Carbon Dioxide 36 mmol/L (22-30); Chloride 94 mmol/L (98-107); Estimated CRCL calculation 54 ml/min; Estimated Glomerular Filt Rate > 60; Glucose 94 mg/dL (65-110); Magnesium 2.1 mg/dL (1.6-2.3); Potassium 3.3 mmol/L (3.4-5.0); Sodium 132 mmol/L (137-145)
--- NOTE | 2022-07-21 07:00 | P.PNIM_ITS ---
Progress Note: A&P Assessment and Plan (1) Sepsis: Code(s): A41.9 - Sepsis, unspecified organism Status: Acute Assessment and Plan: * Patient meets SIRS criteria with tachycardia, tachypnea, hypothermia, source of infections, with slight hypotension upon arrival * Source of infections appears to be Pneumonia * LR x 2 L given * WBC trending down currently 11.8 * Continue to trend labs * IV antibiotics cefepime and vanco * Sputum culture ordered * blood culture NGTD * Urine culture no growth * Continue with current treatment * Seems resolved (2) Respiratory failure with hypoxia: Code(s): J96.91 - Respiratory failure, unspecified with hypoxia Status: Acute Assessment and Plan: * Currently 2LNC sating low 90s * ABG appears to be stable * Titrate oxygen to maintain saturations >90% * neb treatments * Converted patient to 2-3LNC, saturations maintaining in the low 90s * Remains stable * Continue lasix 40mg IV for now (3) Pneumonia: Code(s): J18.9 - Pneumonia, unspecified organism Status: Acute Assessment and Plan: * Chest xray noted worsening consolidation * Cultures in progress * Give ceftriaxone in the ED, switch to cefepime and vanco * MRSA swab negative, DC vanco * Neb treatments * Sputum culture ordered, yet to be collected * Supportive care * repeat chest xray 07/20/22 mild pulm edema, opacities in the lung bases, cardiomegaly (4) Acute metabolic encephalopathy: Code(s): G93.41 - Metabolic encephalopathy Status: Acute Assessment and Plan: * Reported that patient was obtunded upon arrival * Seems to be resolved at this time * Able to answer some questions * Probably related to the infection * continue treatment * Even better today (5) Heart failure: Code(s): I50.9 - Heart failure, unspecified Status: Acute Assessment and Plan: * acute on chronic diastolic heart failure with exacerbation * BNP 2710 * Lasix given intermittent * One dose of diamox given 07/20/22 * continue lasix 40mg IV BID at 1700 * trend urine output * daily weights * echo EF 55-60% with some diastolic dysfunction (6) Atrial fibrillation: Code(s): I48.91 - Unspecified atrial fibrillation Status: Acute Assessment and Plan: * Tele monitor shows afib RVR * Continue tele monitor * HR better in the 80-90s * Amiodarone drip per cardiology, transitioned to metoprolol * Cardiology consulted thank you for your help * Restarted home meds * trend HR (7) Chronic GERD: Code(s): K21.9 - Gastro-esophageal reflux disease without esophagitis Status: Acute Assessment and Plan: * Protonix IV Q12H for now (8) Dementia 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
--- NOTE | 2022-07-21 07:00 | PM.IMPN ---
Progress Note: A&P Assessment and Plan (1) Sepsis: Code(s): A41.9 - Sepsis, unspecified organism Status: Acute Assessment and Plan: Patient meets SIRS criteria with tachycardia, tachypnea, hypothermia, source of infections, with slight hypotension upon arrival Source of infections appears to be Pneumonia LR x 2 L given WBC trending down currently 11.8 Continue to trend labs IV antibiotics cefepime and vanco Sputum culture ordered blood culture NGTD Urine culture no growth Continue with current treatment Seems resolved (2) Respiratory failure with hypoxia: Code(s): J96.91 - Respiratory failure, unspecified with hypoxia Status: Acute Assessment and Plan: Currently 2LNC sating low 90s ABG appears to be stable Titrate oxygen to maintain saturations >90% neb treatments Converted patient to 2-3LNC, saturations maintaining in the low 90s Remains stable Continue lasix 40mg IV for now (3) Pneumonia: Code(s): J18.9 - Pneumonia, unspecified organism Status: Acute Assessment and Plan: Chest xray noted worsening consolidation Cultures in progress Give ceftriaxone in the ED, switch to cefepime and vanco MRSA swab negative, DC vanco Neb treatments Sputum culture ordered, yet to be collected Supportive care repeat chest xray 07/20/22 mild pulm edema, opacities in the lung bases, cardiomegaly (4) Acute metabolic encephalopathy: Code(s): G93.41 - Metabolic encephalopathy Status: Acute Assessment and Plan: Reported that patient was obtunded upon arrival Seems to be resolved at this time Able to answer some questions Probably related to the infection continue treatment Even better today (5) Heart failure: Code(s): I50.9 - Heart failure, unspecified Status: Acute Assessment and Plan: acute on chronic diastolic heart failure with exacerbation BNP 2710 Lasix given intermittent One dose of diamox given 07/20/22 continue lasix 40mg IV BID at 1700 trend urine output daily weights echo EF 55-60% with some diastolic dysfunction (6) Atrial fibrillation: Code(s): I48.91 - Unspecified atrial fibrillation Status: Acute Assessment and Plan: Tele monitor shows afib RVR Continue tele monitor HR better in the 80-90s Amiodarone drip per cardiology, transitioned to metoprolol Cardiology consulted thank you for your help Restarted home meds trend HR (7) Chronic GERD: Code(s): K21.9 - Gastro-esophageal reflux disease without esophagitis Status: Acute Assessment and Plan: Protonix IV Q12H for now (8) Dementia 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 She is very slow to respond however she does answer some questions. She stated that she is very tired. She denies any pain. Still remains on 2 L. complete review of systems unable to be obtained due to patient's mental status nursing called yesterday about patient's POA wanting to put her on hospice. Consult for care coordination has been placed. 07/20/22899 patient is much more arousable today as she is very talkative. She denies any c
[2022-07-21] MEDS: ATORVASTATIN 20 MG TABLET PO (09:59)
[2022-07-21] MEDS: ANASTROZOLE (*CHEMO) 1 MG TABLET PO (09:59)
[2022-07-21] MEDS: CARBIDOPA/LEVODOPA 25/100 MG CR TABLET 1 TABLET PO (09:59)
[2022-07-21] MEDS: lisinopriL 20 MG TABLET 40 MG PO (10:00)
[2022-07-21] MEDS: DONEPEZIL HCL 10 MG TABLET PO (10:00)
[2022-07-21] MEDS: MAGNESIUM OXIDE 400 MG TABLET PO (10:00)
[2022-07-21] MEDS: FUROSEMIDE INJ 40 MG/4 ML VIAL IV PUSH ×2 (10:01→17:06)
[2022-07-21] MEDS: MEMANTINE HCL XR 28 MG CAP PO (10:01)
[2022-07-21] MEDS: METOPROLOL TARTRATE 50 MG TAB PO ×2 (10:01→20:05)
[2022-07-21] MEDS: PANTOPRAZOLE SODIUM IV 40 MG VIAL IV PUSH ×2 (10:01→20:06)
--- NOTE | 2022-07-21 10:34 | PM.PNCARD ---
Progress Note: A&P Assessment and Plan (1) Atrial fibrillation: Code(s): I48.91 - Unspecified atrial fibrillation Status: Acute Plan 86-year-old lady with chronic atrial fibrillation rate control with current diltiazem metoprolol regimen is adequate. Patient is anticoagulated with Xarelto. No cardiac adjustments to be made today. Alfonso Fish MD [facility] Subjective Date/time seen: Date of service: 07/21/22 10:34 Interval history: Follow-up visit in this 86-year-old woman with: Chronic atrial fibrillation seeing patient for assistance with heart rate control in the setting of community-acquired pneumonia. Patient is comfortable and offers no cardiovascular complaints upon awakening. Patient is arousable but not otherwise aware of why she is in the hospital. Exam Const: General: comfortable and no acute distress Other: Obese elderly lady laying in the right lateral decubitus position sleeping when I entered the room upon awakening appears to be comfortable HENMT: Mouth: Yes moist mucous membranes Eyes: Sclera: sclerae normal Neck: Neck: supple Resp: Effort & Inspection: normal respiratory effort Other: Scattered rhonchi are noted no wheezing no rales Cardio: Rhythm: abnormal rhythm irregularly irregular GI: GI Palp: Yes Soft to palpation Auscultation: normal bowel sounds Skin: General skin exam: normal color Objective Data Vital Signs Vital Signs: Vital Signs - 24 hr 07/20/22 11:05 07/20/22 11:17 07/20/22 12:00 Temperature 36.2 C L Pulse Rate 104 H 101 H 89 Respiratory Rate 20 24 H 24 H Blood Pressure 104/43 L Pulse Oximetry 96 Oxygen Delivery Oxygen Flow Rate Fraction of Inspired Oxygen 07/20/22 12:00 07/20/22 14:00 07/20/22 12:00 Temperature Pulse Rate 85 88 Respiratory Rate Blood Pressure Pulse Oximetry 96 Oxygen Delivery Nasal Cannula Oxygen Flow Rate 2 Fraction of Inspired Oxygen 07/20/22 16:00 07/20/22 16:00 07/20/22 16:29 Temperature Pulse Rate 99 96 Respiratory Rate 20 Blood Pressure Pulse Oximetry 96 Oxygen Delivery Nasal Cannula Oxygen Flow Rate 2 Fraction of Inspired Oxygen 07/20/22 16:42 07/20/22 16:00 07/20/22 18:00 Temperature 36.2 C L Pulse Rate 100 97 97 Respiratory Rate 20 20 Blood Pressure 118/52 L Pulse Oximetry 97 Oxygen Delivery Oxygen Flow Rate Fraction of Inspired Oxygen 07/20/22 20:08 07/20/22 20:00 07/20/22 20:14 Temperature 36.1 C L Pulse Rate 88 90 82 Respiratory Rate 20 18 Blood Pressure 115/55 L Pulse Oximetry 99 97 Oxygen Delivery Nasal Cannula Oxygen Flow Rate 5 Fraction of Inspired Oxygen 07/20/22 20:14 07/20/22 20:25 07/20/22 20:00 Temperature Pulse Rate 82 88 88 Respiratory Rate 18 20 Blood Pressure Pulse Oximetry Oxygen Delivery Oxygen Flow Rate Fraction of Inspired Oxygen 07/20/22 20:00 07/20/22 21:32 07/20/22 23:54 Temperature Pulse Rate 88 92 86 Respiratory Rate 20 Blood Pressure Pulse Oximetry 97 Oxygen Delivery Nasal Cannula Oxygen Flow Rate 5 Fraction of Inspired Oxygen 45 07/21/22 00:14 07/21/22 00:14 07/21/22 00:24 Temperature Pulse Rate 79 79 90 Respiratory Rate 18 18 18 Blood Pressure Pulse Oximetry 99 Oxygen Delivery Nasal Cannula Oxygen Flow Rate 5 Fraction of Inspired Oxygen 07/21/22 04:00 07/21/22 04:11 07/21/22 04:00 Temperature 36.6 C Pulse Rate 79 85 83 Respiratory Rate 18 20 20 Blood Pressure 96/37 L Pulse Oximetry 98 Oxygen Delivery Oxygen Flow Rate Fraction of Inspired Oxygen 07/21/22 04:00 07/21/22 08:00 07/21/22 09:26 Temperature 36.1 C L Pulse Rate 85 84 84 Respiratory Rate 28 H 18 Blood Pressure 95/51 L Pulse Oximetry 96 Oxygen Delivery Oxygen Flow Rate Fraction of Inspired Oxygen 07/21/22 09:32 07/21/22 10:01 07/21/22 08:00 Temperature Pulse Rate 82 95 88 Res
[2022-07-21] MEDS: RIVAROXABAN 20 MG TABLET PO (17:07)
[2022-07-21] MEDS: CARBIDOPA/LEVODOPA 25/100 MG CR TABLET 2 TABLET PO (20:05)
[2022-07-22] VITALS (13 sets, daily range): BP systolic 110–139; BP diastolic 61–70; PULSE 64–105; RESP 18–26; TEMP 36.2–36.4; O2SAT 96–99
[2022-07-22] MEDS: IPRATROPIUM BR 0.02% INH SOLN 0.5 MG/2.5 ML VIAL INHALATION ×3 (00:15→15:06)
[2022-07-22 04:31] LABS: Basophils Percent Auto 0.3 % (0.2-1.2); Eosinophils Absolute Auto 0.2 K/mm3 (0-0.3); Eosinophils Percent Auto 1.6 % (0-4.4); Hematocrit 39.9 % (37.0-47.0); Hemoglobin 12.3 g/dL (12.0-15.0); Immature Granulocyte Absolute 0.05 K/mm3 (0.00-0.031); Immature Granulocyte Percent A 0.4 % (0-0.5); Lymphocytes Absolute Auto 1.41 K/mm3 (0.9-3.2); Lymphocytes Percent Auto 10.7 % (18.3-44.2); Mean Corpuscular HGB Conc 30.8 g/dl (32-36); Mean Corpuscular Hemoglobin 28.1 pg (26-34); Mean Corpuscular Volume 91.1 fl (80-100); Mean Platelet Volume 9.3 fl (7.4-10.4); Monocytes Absolute Auto 1.5 K/mm3 (0.1-0.6); Monocytes Percent Auto 11.6 % (2.6-8.5); Neutrophils Percent Auto 75.4 % (45.5-73.1); Platelet Count Result 198 k/mm3 (150-375); Red Blood Count 4.38 M/mm3 (4.2-5.4); Red Cell Distribution Width 13.2 % (11.5-14.5); White Blood Count 13.2 K/mm3 (4.5-10.0)
[2022-07-22 04:55] LABS: Alanine Aminotransferase 12 U/L (6-35); Alkaline Phosphatase 78 U/L (38-126); Anion Gap 2 mmol/L (8-16); Aspartate Amino Transferase 42 U/L (14-36); Bilirubin,Total 0.7 mg/dL (0.2-1.3); Blood Urea Nitrogen 13 mg/dL (7-17); Carbon Dioxide 39 mmol/L (22-30); Chloride 93 mmol/L (98-107); Estimated CRCL calculation 54 ml/min; Estimated Glomerular Filt Rate > 60; Glucose 97 mg/dL (65-110); Potassium 3.2 mmol/L (3.4-5.0); Sodium 134 mmol/L (137-145)
[2022-07-22 05:14] LABS: Vancomycin Trough 23.1 ug/mL (10.0-20.0)
[2022-07-22] MEDS: MEMANTINE HCL XR 28 MG CAP PO (09:59)
[2022-07-22] MEDS: CARBIDOPA/LEVODOPA 25/100 MG CR TABLET 1 TABLET PO (09:59)
[2022-07-22] MEDS: lisinopriL 20 MG TABLET 40 MG PO (10:03)
[2022-07-22] MEDS: MAGNESIUM OXIDE 400 MG TABLET PO (10:03)
[2022-07-22] MEDS: DONEPEZIL HCL 10 MG TABLET PO (10:03)
[2022-07-22] MEDS: FUROSEMIDE INJ 40 MG/4 ML VIAL IV PUSH (10:03)
[2022-07-22] MEDS: ANASTROZOLE (*CHEMO) 1 MG TABLET PO (10:04)
[2022-07-22] MEDS: PANTOPRAZOLE SODIUM IV 40 MG VIAL IV PUSH (10:04)
[2022-07-22] MEDS: ATORVASTATIN 20 MG TABLET PO (10:04)
[2022-07-22] MEDS: METOPROLOL TARTRATE 50 MG TAB PO (10:04)
--- NOTE | 2022-07-22 10:30 | PM.DS ---
DS: Admitting Diagnosis Discharge Date 07/22/22 1030 Admitting Diagnosis Sepsis with PNA, respiratory failure with hypoxia, afib RVR DS: Discharge Diagnosis Discharge Diagnosis (1) Sepsis: Code(s): A41.9 - Sepsis, unspecified organism Status: Acute Assessment and Plan: Patient meets SIRS criteria with tachycardia, tachypnea, hypothermia, source of infections, with slight hypotension upon arrival Source of infections appears to be Pneumonia LR x 2 L given WBC trending down currently 11.8 Continue to trend labs IV antibiotics cefepime and vanco Sputum culture ordered blood culture NGTD Urine culture no growth Continue with current treatment Seems resolved (2) Respiratory failure with hypoxia: Code(s): J96.91 - Respiratory failure, unspecified with hypoxia Status: Acute Assessment and Plan: Currently 2LNC sating low 90s ABG appears to be stable Titrate oxygen to maintain saturations >90% neb treatments Converted patient to 2-3LNC, saturations maintaining in the low 90s Remains stable Continue lasix 40mg IV for now (3) Pneumonia: Code(s): J18.9 - Pneumonia, unspecified organism Status: Acute Assessment and Plan: Chest xray noted worsening consolidation Cultures in progress Give ceftriaxone in the ED, switch to cefepime and vanco MRSA swab negative, DC vanco Neb treatments Sputum culture ordered, yet to be collected Supportive care repeat chest xray 07/20/22 mild pulm edema, opacities in the lung bases, cardiomegaly (4) Acute metabolic encephalopathy: Code(s): G93.41 - Metabolic encephalopathy Status: Acute Assessment and Plan: Reported that patient was obtunded upon arrival Seems to be resolved at this time Able to answer some questions Probably related to the infection continue treatment Even better today (5) Heart failure: Code(s): I50.9 - Heart failure, unspecified Status: Acute Assessment and Plan: acute on chronic diastolic heart failure with exacerbation BNP 2710 Lasix given intermittent One dose of diamox given 07/20/22 continue lasix 40mg IV BID at 1700 trend urine output daily weights echo EF 55-60% with some diastolic dysfunction (6) Atrial fibrillation: Code(s): I48.91 - Unspecified atrial fibrillation Status: Acute Assessment and Plan: Tele monitor shows afib RVR Continue tele monitor HR better in the 80-90s Amiodarone drip per cardiology, transitioned to metoprolol Cardiology consulted thank you for your help Restarted home meds trend HR (7) Chronic GERD: Code(s): K21.9 - Gastro-esophageal reflux disease without esophagitis Status: Acute Assessment and Plan: Protonix IV Q12H for now (8) Dementia 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 behavioral disturbance: Code(s): F02.80 - Dementia in other diseases classified elsewhere, unspecified severity, without behavioral disturbance, psychotic disturbance, mood disturbance, and anxiety Status: Acute Assessment and Plan: Continue home meds (9) Parkinsonism: Code(s): G20 - Parkinson's disease Status: Acute Assessment and Plan: Continue home meds Plan Hospice still pending DS: Summary Hospital Course Hospital Course: patient is an 86-year-old female with a past medical history of Parkinson's, AFib, hypertension who presented [facility] the ED from the [facility] living with shortness of breath, desaturation. prior to this visit patient had been to the emergency room and was sent home on oral antibiotics. When patient was admitted it was noted that the patient's p.o. was considering comfort care however decided that she would like the pneumonia that was found to be treated. Pat
--- NOTE | 2022-07-22 10:30 | P.DS_ITS ---
DS: Admitting Diagnosis Discharge Date 07/22/22 1030 Admitting Diagnosis Sepsis with PNA, respiratory failure with hypoxia, afib RVR DS: Discharge Diagnosis Discharge Diagnosis (1) Sepsis: Code(s): A41.9 - Sepsis, unspecified organism Status: Acute Assessment and Plan: * Patient meets SIRS criteria with tachycardia, tachypnea, hypothermia, source of infections, with slight hypotension upon arrival * Source of infections appears to be Pneumonia * LR x 2 L given * WBC trending down currently 11.8 * Continue to trend labs * IV antibiotics cefepime and vanco * Sputum culture ordered * blood culture NGTD * Urine culture no growth * Continue with current treatment * Seems resolved (2) Respiratory failure with hypoxia: Code(s): J96.91 - Respiratory failure, unspecified with hypoxia Status: Acute Assessment and Plan: * Currently 2LNC sating low 90s * ABG appears to be stable * Titrate oxygen to maintain saturations >90% * neb treatments * Converted patient to 2-3LNC, saturations maintaining in the low 90s * Remains stable * Continue lasix 40mg IV for now (3) Pneumonia: Code(s): J18.9 - Pneumonia, unspecified organism Status: Acute Assessment and Plan: * Chest xray noted worsening consolidation * Cultures in progress * Give ceftriaxone in the ED, switch to cefepime and vanco * MRSA swab negative, DC vanco * Neb treatments * Sputum culture ordered, yet to be collected * Supportive care * repeat chest xray 07/20/22 mild pulm edema, opacities in the lung bases, cardiomegaly (4) Acute metabolic encephalopathy: Code(s): G93.41 - Metabolic encephalopathy Status: Acute Assessment and Plan: * Reported that patient was obtunded upon arrival * Seems to be resolved at this time * Able to answer some questions * Probably related to the infection * continue treatment * Even better today (5) Heart failure: Code(s): I50.9 - Heart failure, unspecified Status: Acute Assessment and Plan: * acute on chronic diastolic heart failure with exacerbation * BNP 2710 * Lasix given intermittent * One dose of diamox given 07/20/22 * continue lasix 40mg IV BID at 1700 * trend urine output * daily weights * echo EF 55-60% with some diastolic dysfunction (6) Atrial fibrillation: Code(s): I48.91 - Unspecified atrial fibrillation Status: Acute Assessment and Plan: * Tele monitor shows afib RVR * Continue tele monitor * HR better in the 80-90s * Amiodarone drip per cardiology, transitioned to metoprolol * Cardiology consulted thank you for your help * Restarted home meds * trend HR (7) Chronic GERD: Code(s): K21.9 - Gastro-esophageal reflux disease without esophagitis Status: Acute Assessment and Plan: * Protonix IV Q12H for now (8) Dementia 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 behavioral disturbance: Code(s): F02.80 - Dementia in other diseases classified elsewhere, unspecified severity, without behavioral disturbance, psychotic disturbance, mood disturbance, and anxiety Status: Acute Assessment and Plan: * Continue home meds
--- NOTE | 2022-07-22 12:21 | PC.NURSE ---
CARLOS from [facility] Spoke with sami and is having hospice paperwork signed today. Once paperwork is signed by sami, patient will discharge back to [facility].
--- NOTE | 2022-07-22 13:55 | PCNFU ---
Nutrition Follow-Up Complete: Inadequate energy intake related to diet order as evidenced by NPO status Goal:Diet order. Pt now has a diet order. New goal is adequate intake Pt current nutrition is Heart healthy, pureed level 4, thickened liquids level 3. Nutrition recommendation: Continue with current plan of care. Last recorded weight is 94.7 kg - stable at this time. Bowel Motility: no recent BM recorded Labs Reviewed:Alb:3.0, NA:134, K:3.2 Meds Noted:lasix, protonix Skin: DTPI to toe, heel Additional Notes:pt is on a heart healthy diet, pureed, thickened liquids, intake appears good per chart at 75-100%. Noted hospice consult. Will monitor status. Recommend MIRTA BID for wound healing. Monitor diet order, intake, wt, labs. Follow up in 7 days.
[2022-07-22 14:53] LABS: EDCOVIDSCREEN Negative (Negative)
== END 2022-07-22 16:57 | disposition hospice, inpatient (51) | DRG 871 ==
LOC: ANHED 20:37 → ANH2MED 22:47 → ANHIMU 07-22 15:01 → ANH2MED 07-24 09:30 → ANHIMU 07-24 09:30
PROVIDERS: Emergency Medicine; Nurse Practitioner; Admitting Provider Internal Medicine; Emergency Provider Emergency Medicine; Visit Provider Nurse Practitioner
DX: A41.9 Sepsis, unspecified organism (principal); G93.41 Metabolic encephalopathy; J18.9 Pneumonia, unspecified organism; J96.01 Acute respiratory failure with hypoxia; I48.20 Chronic atrial fibrillation, unspecified; K21.9 Gastro-esophageal reflux disease without esophagitis; I11.0 Hypertensive heart disease with heart failure; I50.9 Heart failure, unspecified; I25.10 Atherosclerotic heart disease of native coronary artery without angina pectoris; E78.5 Hyperlipidemia, unspecified; R65.20 Severe sepsis without septic shock; G20 Parkinson's disease; F03.90 Unspecified dementia, unspecified severity, without behavioral disturbance, psychotic disturbance, mood disturbance, and anxiety; F32.9 Major depressive disorder, single episode, unspecified; F79 Unspecified intellectual disabilities; Z66 Do not resuscitate; Z20.822 Contact with and (suspected) exposure to COVID-19; Z90.11 Acquired absence of right breast and nipple; Z86.711 Personal history of pulmonary embolism; Z86.73 Personal history of transient ischemic attack (TIA), and cerebral infarction without residual deficits; Z85.3 Personal history of malignant neoplasm of breast; Z79.01 Long term (current) use of anticoagulants; Z86.718 Personal history of other venous thrombosis and embolism; Z51.5 Encounter for palliative care
CPT/HCPCS: 36415; 36600; 71045; 80053; 80202; 81001; 82375; 82805; 83050; 83605; 83735; 83880; 84484; 85025; 85610; 85730; 87040; 87081; 87086; 87426; 87636; 92610; 92611; 93005; 93970; 94640; 96374; 99285; A9270; C8929; C9113; C9803; J0282; J0456; J0692; J0696; J1120; J1160; J1940; J2930; J3370; J7120; Q9957